=== PATIENT | female | born 1965 | race Two or more races ===

== ENCOUNTER 2024-03-10 19:00 | Inpatient (IN) | payer MEDICAID, OTHER ==
[~2024-03-10] VITALS: Ht 167.6 cm; Wt 101.6 kg
[2024-03-10] MEDS ORDERED: VANCOMYCIN 1 GM /D5W 250 ML PB IV ONE (19:27)
[2024-03-10] MEDS ORDERED: CEFEPIME 1 GM VIAL ONE (19:27)
[2024-03-10] MEDS ORDERED: CLINDAMYCIN 900 MG/6 ML VIAL ONE (19:27)
[2024-03-10] MEDS ORDERED: ALBUMIN 25% 50 ML IV ONE ×2 (19:27→19:38)
[2024-03-10] MEDS: IV NS 0.9% 1,000 ML BAG IV ONE (19:27)
[2024-03-10 19:29] LABS: BASOPHILS # (AUTO) 0.1 K/uL (0.0-0.2); EOSINOPHILS # (AUTO) 0.2 K/uL (0.0-0.7); MONOCYTES # (AUTO) 0.1 K/uL (0.1-1.30); NEUTROPHILS # (AUTO) 14.4 K/uL (1.8-8.9)
[2024-03-10] MEDS: ALBUMIN 25% 12.5 GM/50 ML BOTTLE IV ONE (19:35)
[2024-03-10] MEDS: CEFEPIME 1 GM in IV D5W 50 ML IV ONE (19:40)
[2024-03-10 19:41] LABS: BASOPHILS % (AUTO) 0.4 % (0.0-2.0); EOSINOPHILS % (AUTO) 1.1 % (0.0-6.0); HEMATOCRIT 38 % (33-45); HEMOGLOBIN 12.3 g/dL (11.5-14.8); LYMPHOCYTES # (AUTO) 0.3 K/uL (0.8-4.8); LYMPHOCYTES % (AUTO) 1.8 % (20.0-44.0); MEAN CORPUSCULAR HEMOGLOBIN 29 PG (26.0-33.0); MEAN CORPUSCULAR HGB CONC 32 g/dl (31.0-36.0); MEAN CORPUSCULAR VOLUME 88 fL (82-100); MONOCYTES % (AUTO) 0.9 % (2.0-12.0); NEUTROPHILS % (AUTO) 95.8 % (43.0-81.0); PLATELET COUNT (AUTO) 89 K/uL (150-450); RED BLOOD CELL COUNT(AUTO) 4.31 MIL/uL (4.0-5.2); RED CELL DISTRIBUTION WIDTH 22.4 % (11.5-15.0)
[2024-03-10 19:53] LABS: INR 1.36 (0.91-1.10); PARTIAL THROMBOPLASTIN TIME 34.9 SEC (24.3-34.3); PROTHROMBIN TIME 14.1 SECS (9.2-11.1)
[2024-03-10 20:04] LABS: ANISOCYTOSIS 1+; LYMPHOCYTES % (MANUAL) 2 % (16-48); MONOCYTES % (MANUAL) 1 % (0-11.0); NEUTROPHILS % (MANUAL) 97 (42-76); PLATELET ESTIMATE DECREASED
[2024-03-10 20:14] LABS: CALCIUM, SERUM 7.6 mg/dL (8.5-10.1); CARBON DIOXIDE 28 mmol/L (21-32); CHLORIDE 93 mmol/L (98-107); CREATININE 3.1 mg/dL (0.6-1.3); POTASSIUM 4.1 mmol/L (3.5-5.1); SODIUM SERUM 135 mmol/L (136-145); UREA NITROGEN, BLOOD 66 mg/dL (7-18)
[2024-03-10] MEDS: CLINDAMYCIN 600 MG in IV D5W 100 ML IV ONE (20:15)
[2024-03-10 20:17] LABS: GLUCOSE 47 mg/dL (74-106)
[2024-03-10 20:19] LABS: ALANINE AMINOTRANSFERASE 84 U/L (12-78); ALBUMIN 1.8 g/dL (3.4-5.0); ALKALINE PHOSPHATASE 100 U/L (46-116); ASPARTATE AMINOTRANSFERASE 95 U/L (15-37); BILIRUBIN,DIRECT 2.4 mg/dL (0.0-0.2); BILIRUBIN,TOTAL 3.1 mg/dL (0.2-1.0)
[2024-03-10 20:25] LABS: LACTIC ACID 4.7 mmol/L (0.4-2.0)
[2024-03-10] MEDS: IV LR 1000 ML 1,000 ML BAG IV ONE (21:00)
[2024-03-10] MEDS ORDERED: NOREPINEPHRINE 8MG/250ML RTU 250 ML IV ONE (21:28)
[2024-03-10] MEDS ORDERED: DEXTROSE 50%-WATER 50 ML DISP.SYRIN ONE (21:28)
[2024-03-10] MEDS: VANCOMYCIN 1 GM in IV D5W 250 ML IV ONE (21:30)
[2024-03-10] MEDS: DEXTROSE 50%-WATER 50 ML DISP.SYRIN IVP ONE (21:35)
[2024-03-10] MEDS: NOREPINEPHRINE 8 MG in IV NS 0.9% 250 ML IV ONE (21:45)
[2024-03-10] MEDS ORDERED: IV D5/ 0.9% NACL 1,000 ML IV PRN (22:30)
[2024-03-10] MEDS ORDERED: Z GUARD REMEDY 4 OZ OINT TP PRN (22:30)
[2024-03-10] MEDS ORDERED: MAG HYDROX/AL HYDROX/SIMETH 30 ML UDC PO PRN (22:30)
[2024-03-10] MEDS ORDERED: MAGNESIUM HYDROXIDE 30 ML UDC PO PRN (22:30)
[2024-03-11] VITALS (62 sets, daily range): BP systolic 75–140; BP diastolic 28–94; TEMP 97.8–98.5; O2SAT 84–98
[2024-03-11] MEDS: NOREPINEPHRINE 8 MG in IV D5W 242 ML IV PRN ×2 (04:00→12:55)
[2024-03-11] MEDS ORDERED: CLINDAMYCIN IV RTU IN D5W 900 MG/50 ML PIGGYBACK IV SCH (04:00)
[2024-03-11] MEDS: NOREPINEPHRINE 8MG/250ML RTU 250 ML IV ONE (06:19)
[2024-03-11] MEDS ORDERED: PANTOPRAZOLE 40 MG VIAL ONE (06:23)
[2024-03-11] MEDS: PANTOPRAZOLE 40 MG VIAL IV SCH (06:40)
[2024-03-11] MEDS ORDERED: FURO-145 PO (07:47)
[2024-03-11] MEDS ORDERED: CHOL200026 PO (07:47)
[2024-03-11] MEDS ORDERED: METH10TA2 PO (07:47)
[2024-03-11] MEDS ORDERED: LOSA1TAB36 PO (07:47)
[2024-03-11 07:54] LABS: CALCIUM, SERUM 7.4 mg/dL (8.5-10.1); CREATININE 3.2 mg/dL (0.6-1.3); MAGNESIUM 1.5 mg/dL (1.8-2.4); PHOSPHORUS 5.5 mg/dL (2.5-4.9); POTASSIUM 4.5 mmol/L (3.5-5.1)
[2024-03-11 08:44] LABS: BASOPHILS # (AUTO) 0.1 K/uL (0.0-0.2); BASOPHILS % (AUTO) 0.5 % (0.0-2.0); EOSINOPHILS # (AUTO) 0.2 K/uL (0.0-0.7); EOSINOPHILS % (AUTO) 0.8 % (0.0-6.0); HEMATOCRIT 40 % (33-45); HEMOGLOBIN 12.3 g/dL (11.5-14.8); LYMPHOCYTES # (AUTO) 0.4 K/uL (0.8-4.8); LYMPHOCYTES % (AUTO) 1.6 % (20.0-44.0); MEAN CORPUSCULAR HEMOGLOBIN 28 PG (26.0-33.0); MEAN CORPUSCULAR HGB CONC 31 g/dl (31.0-36.0); MEAN CORPUSCULAR VOLUME 89 fL (82-100); MONOCYTES # (AUTO) 0.3 K/uL (0.1-1.30); MONOCYTES % (AUTO) 1.3 % (2.0-12.0); NEUTROPHILS # (AUTO) 20.8 K/uL (1.8-8.9); NEUTROPHILS % (AUTO) 95.8 % (43.0-81.0); PLATELET COUNT (AUTO) 70 K/uL (150-450); RED BLOOD CELL COUNT(AUTO) 4.45 MIL/uL (4.0-5.2); RED CELL DISTRIBUTION WIDTH 21.5 % (11.5-15.0); WHITE BLOOD COUNT (AUTO) 21.7 K/uL (4.3-11.0)
[2024-03-11] MEDS ORDERED: HEPARIN SODIUM, PORCINE 5000 UNITS/1 ML VIAL SQ SCH (09:00)
[2024-03-11] MEDS: BUMETANIDE INJ 8 MG in IV NS 0.9% 48 ML IV ONE (09:47)
[2024-03-11] MEDS ORDERED: NOREPINEPHRINE 32 MG in IV NS 0.9% 218 ML IV PRN ×2 (10:30→19:00)
[2024-03-11] MEDS: Magnesium 1GM/D5W 100ML PREMIX 100 ML IV SCH (10:57)
[2024-03-11] MEDS ORDERED: NOREPINEPHRINE 8 MG in IV D5W 242 ML IV PRN (11:00)
[2024-03-11 11:21] LABS: ANISOCYTOSIS 1+; BASOPHILS % (MANUAL) 0 % (0.0-2.0); EOSINOPHILS % (MANUAL) 0 % (0-4); LYMPHOCYTES % (MANUAL) 5 % (16-48); MONOCYTES % (MANUAL) 4 % (0-11.0); NEUTROPHILS % (MANUAL) 91 (42-76); PLATELET ESTIMATE DECREASED
[2024-03-11] MEDS ORDERED: METHADONE HCL 10 MG TABLET PO SCH (12:30)
[2024-03-11] MEDS ORDERED: CLINDAMYCIN 900 MG in IV D5W 50 ML IV SCH (13:00)
[2024-03-11] MEDS: CHOLECALCIFEROL 1,000 UNIT TABLET (VIT D3) PO SCH (13:20)
[2024-03-11] MEDS ORDERED: DEXTROSE 50%-WATER 50 ML DISP.SYRIN IV PRN (15:00)
[2024-03-11] MEDS: BLOOD SUGAR DIAGNOSTIC 1 EACH STRIP IN SCH (15:09)
[2024-03-11] MEDS: CEFEPIME 1 GM in IV D5W 50 ML IV SCH (17:05)
[2024-03-11 18:44] LABS: APPEARANCE,URINE SLIGHTLY CLOUDY (CLEAR); BILIRUBIN,URINE 1+ (NEGATIVE); BLOOD, URINE 2+ Ery/uL (NEGATIVE); COLOR,URINE YELLOW (YELLOW); KETONES,URINE NEGATIVE (NEGATIVE); LEUKOCYTE ESTERASE ,URINE NEGATIVE (NEGATIVE); NITRITE, URINE NEGATIVE (NEGATIVE); PROTEIN,URINE 3+ mg/dl (NEGATIVE); UGLUCOSE NEGATIVE (NEGATIVE)
[2024-03-11 18:59] LABS: ADD URINE CULTURE YES; BACTERIA,URINE Many /HPF (None Seen); SQUAMOUS EPITHELIAL CELL,UR Moderate /HPF (None Seen); WBC,URINE 0-2 /HPF (0-3)
[2024-03-11 19:01] LABS: URINE TOTAL PROTEIN 563.8 mg/dL (0-11.9)
[2024-03-11 19:19] LABS: EOSINOPHIL,URINE None Seen
[2024-03-12] VITALS (89 sets, daily range): BP systolic 72–165; BP diastolic 37–137; TEMP 97.2–98; O2SAT 82–99
[2024-03-12 04:37] LABS: BASOPHILS % (AUTO) 0.2 % (0.0-2.0); HEMATOCRIT 37 % (33-45); HEMOGLOBIN 11.7 g/dL (11.5-14.8); LYMPHOCYTES # (AUTO) 0.4 K/uL (0.8-4.8); LYMPHOCYTES % (AUTO) 1.9 % (20.0-44.0); MEAN CORPUSCULAR HEMOGLOBIN 28 PG (26.0-33.0); MEAN CORPUSCULAR HGB CONC 32 g/dl (31.0-36.0); MEAN CORPUSCULAR VOLUME 89 fL (82-100); MONOCYTES # (AUTO) 0.3 K/uL (0.1-1.30); MONOCYTES % (AUTO) 1.6 % (2.0-12.0); NEUTROPHILS # (AUTO) 18.2 K/uL (1.8-8.9); NEUTROPHILS % (AUTO) 96.3 % (43.0-81.0); PLATELET COUNT (AUTO) 57 K/uL (150-450); RED BLOOD CELL COUNT(AUTO) 4.14 MIL/uL (4.0-5.2); RED CELL DISTRIBUTION WIDTH 21.7 % (11.5-15.0); WHITE BLOOD COUNT (AUTO) 18.9 K/uL (4.3-11.0)
[2024-03-12 05:01] LABS: ALBUMIN 1.8 g/dL (3.4-5.0); BILIRUBIN,TOTAL 2.6 mg/dL (0.2-1.0); CREATININE 3.8 mg/dL (0.6-1.3); MAGNESIUM 1.8 mg/dL (1.8-2.4); PHOSPHORUS 6.2 mg/dL (2.5-4.9); POTASSIUM 3.9 mmol/L (3.5-5.1)
[2024-03-12 05:44] LABS: BAND % (MANUAL) 2 % (0.0-5.0); LYMPHOCYTES % (MANUAL) 1 % (16-48); MONOCYTES % (MANUAL) 1 % (0-11.0); NEUTROPHILS % (MANUAL) 96 (42-76)
[2024-03-12 05:45] LABS: ANISOCYTOSIS 1+; PLATELET ESTIMATE DECREASED
[2024-03-12] MEDS: VANCOMYCIN 750 MG in IV D5W 250 ML IV SCH (08:13)
[2024-03-12] MEDS: PANTOPRAZOLE 40 MG TABLET.DR PO SCH (08:17)
[2024-03-12] MEDS: FLUOCINONIDE 0.05% CREAM 60 GM TUBE TP SCH (08:18)
[2024-03-12] MEDS: DAKINS QUARTER STRENGTH (0.125%) 480 ML BOTTLE TOP SCH (08:18)
[2024-03-12] MEDS: SILVER SULFADIAZINE 50 GM JAR TP SCH (08:19)
[2024-03-12] MEDS ORDERED: VANCOMYCIN 1 GM in IV D5W 250ml IV SCH (09:00)
[2024-03-12] MEDS ORDERED: PHENYLEPHRINE 50 MG in IV NS 0.9% 245 ML IV PRN (11:00)
[2024-03-12] MEDS: PHENYLEPHRINE 100 MG in IV NS 0.9% 240 ML IV PRN (11:13)
[2024-03-12] MEDS ORDERED: LORAZEPAM INJ 2 MG/ML VIAL IV PRN (17:00)
[2024-03-12] MEDS: LORAZEPAM 1 MG TABLET PO PRN (17:20)
[2024-03-13] VITALS (100 sets, daily range): BP systolic 68–201; BP diastolic 37–152; TEMP 97–97.7; O2SAT 90–100
[2024-03-13] MEDS: HYDROCODONE/APAP 5/325MG TABLET PO PRN (02:51)
[2024-03-13 05:38] LABS: BASOPHILS # (AUTO) 0.1 K/uL (0.0-0.2); BASOPHILS % (AUTO) 0.5 % (0.0-2.0); EOSINOPHILS # (AUTO) 0.1 K/uL (0.0-0.7); EOSINOPHILS % (AUTO) 0.5 % (0.0-6.0); HEMATOCRIT 38 % (33-45); HEMOGLOBIN 11.7 g/dL (11.5-14.8); LYMPHOCYTES # (AUTO) 0.3 K/uL (0.8-4.8); LYMPHOCYTES % (AUTO) 2.3 % (20.0-44.0); MEAN CORPUSCULAR HEMOGLOBIN 28 PG (26.0-33.0); MEAN CORPUSCULAR HGB CONC 31 g/dl (31.0-36.0); MEAN CORPUSCULAR VOLUME 89 fL (82-100); MONOCYTES # (AUTO) 0.4 K/uL (0.1-1.30); MONOCYTES % (AUTO) 2.6 % (2.0-12.0); NEUTROPHILS # (AUTO) 13.1 K/uL (1.8-8.9); NEUTROPHILS % (AUTO) 94.1 % (43.0-81.0); RED BLOOD CELL COUNT(AUTO) 4.22 MIL/uL (4.0-5.2); RED CELL DISTRIBUTION WIDTH 21.4 % (11.5-15.0); WHITE BLOOD COUNT (AUTO) 13.9 K/uL (4.3-11.0)
[2024-03-13 05:42] LABS: PLATELET COUNT (AUTO) 44 K/uL (150-450)
[2024-03-13 05:47] LABS: CREATININE 4.2 mg/dL (0.6-1.3); MAGNESIUM 1.9 mg/dL (1.8-2.4); PHOSPHORUS 6.7 mg/dL (2.5-4.9); POTASSIUM 4.7 mmol/L (3.5-5.1)
[2024-03-13 11:35] LABS: BASOPHILS % (MANUAL) 0 % (0.0-2.0); EOSINOPHILS % (MANUAL) 0 % (0-4); LYMPHOCYTES % (MANUAL) 4 % (16-48); MONOCYTES % (MANUAL) 3 % (0-11.0); NEUTROPHILS % (MANUAL) 93 (42-76)
[2024-03-13 11:36] LABS: ANISOCYTOSIS 1+; PLATELET ESTIMATE DECREASED
[2024-03-13 13:05] LABS: ABG BASE EXCESS -1.5 mmol/L; ABG OXYGEN SATURATION 99.1 % (92.0-98.5); ABG PCO2 52.8 mmHg (35.0-45.0); ABG PH 7.302 (7.350-7.450); ABG PO2 169.8 mmHg (75.0-100.0); ABG TOTAL HEMOGLOBIN 13.1 G/dL (12.0-16.0); AaDO2 127.3 mmHg; MetHb 0.3 % (0.0-1.5); O2Hb 97.8 % (94.0-97.0); SITE, ABG Right Radial
[2024-03-13] MEDS: ALBUMIN 25% 25 GM in PREMIX 1 EA IV PRN (17:37)
[2024-03-13] MEDS: VANCOMYCIN POST DIALYSIS 500MG IV PRN (19:06)
[2024-03-13] MEDS: IV NS 0.9% 250 ML IV PRN (19:19)
[2024-03-14] VITALS (86 sets, daily range): BP systolic 86–245; BP diastolic 47–217; TEMP 97.7–98.1; O2SAT 82–100
[2024-03-14 01:07] LABS: HEPATITIS B SURFACE AB Reactive (.)
[2024-03-14 01:07] LABS: PTH, INTACT 256 pg/mL (15-65)
[2024-03-14 07:00] LABS: BASOPHILS % (AUTO) 0.1 % (0.0-2.0); EOSINOPHILS # (AUTO) 0.1 K/uL (0.0-0.7); EOSINOPHILS % (AUTO) 0.6 % (0.0-6.0); HEMATOCRIT 38 % (33-45); HEMOGLOBIN 11.7 g/dL (11.5-14.8); LYMPHOCYTES # (AUTO) 0.2 K/uL (0.8-4.8); LYMPHOCYTES % (AUTO) 2.3 % (20.0-44.0); MEAN CORPUSCULAR HEMOGLOBIN 28 PG (26.0-33.0); MEAN CORPUSCULAR HGB CONC 31 g/dl (31.0-36.0); MEAN CORPUSCULAR VOLUME 92 fL (82-100); MONOCYTES # (AUTO) 0.4 K/uL (0.1-1.30); MONOCYTES % (AUTO) 4.3 % (2.0-12.0); NEUTROPHILS # (AUTO) 7.7 K/uL (1.8-8.9); NEUTROPHILS % (AUTO) 92.7 % (43.0-81.0); PLATELET COUNT (AUTO) 59 K/uL (150-450); RED BLOOD CELL COUNT(AUTO) 4.14 MIL/uL (4.0-5.2); RED CELL DISTRIBUTION WIDTH 22.1 % (11.5-15.0); WHITE BLOOD COUNT (AUTO) 8.3 K/uL (4.3-11.0)
[2024-03-14 07:03] LABS: CALCIUM, SERUM 8.2 mg/dL (8.5-10.1); CREATININE 3.8 mg/dL (0.6-1.3); POTASSIUM 5.7 mmol/L (3.5-5.1)
[2024-03-14 07:19] LABS: MAGNESIUM 2.1 mg/dL (1.8-2.4); PHOSPHORUS 7.2 mg/dL (2.5-4.9)
[2024-03-14 08:09] LABS: COMPLEMENT C3, SERUM 111 mg/dL (82-167); COMPLEMENT C4, SERUM 20 mg/dL (12-38)
[2024-03-14 09:59] LABS: BAND % (MANUAL) 2 % (0.0-5.0); BASOPHILS % (MANUAL) 0 % (0.0-2.0); EOSINOPHILS % (MANUAL) 0 % (0-4); LYMPHOCYTES % (MANUAL) 3 % (16-48); MONOCYTES % (MANUAL) 6 % (0-11.0); NEUTROPHILS % (MANUAL) 89 (42-76)
[2024-03-14 10:00] LABS: ANISOCYTOSIS 1+; HYPOCHROMASIA 1+; OVALOCYTES 1+; PLATELET ESTIMATE DECREASED
[2024-03-14 11:07] LABS: *ANA ANTI-CENTROMERE B AB <0.2 AI (0.0-0.9); *ANA ANTI-DNA(DS) AB, QN <1 IU/mL (0-9); *ANA ANTI-JO-1 <0.2 AI (0.0-0.9); *ANA ANTICHROMATIN ANTIBODY <0.2 AI (0.0-0.9); *ANA RNP ANTIBODIES 1.8 AI (0.0-0.9); *ANA SJOGREN'S ANTI-SS-A <0.2 AI (0.0-0.9); *ANA SJOGREN'S ANTI-SS-B <0.2 AI (0.0-0.9); *ANAANTI-SCLERODERMA-70 AB <0.2 AI (0.0-0.9); *ANASMITH AB <0.2 AI (0.0-0.9)
[2024-03-14] MEDS: PANTOPRAZOLE 40 MG VIAL IV SCH (11:32)
[2024-03-14] MEDS ORDERED: CEFAZOLIN 1 GM in IV D5W 50 ML IV SCH (13:00)
[2024-03-14] MEDS: CEFAZOLIN 1 GM in IV D5W 50 ML IV SCH (14:35)
[2024-03-14] MEDS: IV D5W 1,000 ML IV PRN (16:41)
[2024-03-14] MEDS: ACETAMINOPHEN 325 MG TABLET PO PRN (21:38)
[2024-03-14] MEDS: hydrALAZINE HCL IV 20 MG VIAL IV PRN (22:03)
[2024-03-15] VITALS (26 sets, daily range): BP systolic 84–154; BP diastolic 50–132; TEMP 97.7–98.3; O2SAT 88–99
[2024-03-15 04:14] LABS: BASOPHILS % (AUTO) 0.1 % (0.0-2.0); EOSINOPHILS % (AUTO) 0.4 % (0.0-6.0); HEMATOCRIT 37 % (33-45); HEMOGLOBIN 11.5 g/dL (11.5-14.8); LYMPHOCYTES # (AUTO) 0.2 K/uL (0.8-4.8); LYMPHOCYTES % (AUTO) 3.5 % (20.0-44.0); MEAN CORPUSCULAR HEMOGLOBIN 28 PG (26.0-33.0); MEAN CORPUSCULAR HGB CONC 31 g/dl (31.0-36.0); MEAN CORPUSCULAR VOLUME 89 fL (82-100); MONOCYTES # (AUTO) 0.4 K/uL (0.1-1.30); MONOCYTES % (AUTO) 5.8 % (2.0-12.0); NEUTROPHILS # (AUTO) 6.1 K/uL (1.8-8.9); NEUTROPHILS % (AUTO) 90.2 % (43.0-81.0); PLATELET COUNT (AUTO) 55 K/uL (150-450); RED BLOOD CELL COUNT(AUTO) 4.15 MIL/uL (4.0-5.2); RED CELL DISTRIBUTION WIDTH 21.3 % (11.5-15.0); WHITE BLOOD COUNT (AUTO) 6.7 K/uL (4.3-11.0)
[2024-03-15 04:33] LABS: CALCIUM, SERUM 8.8 mg/dL (8.5-10.1); CREATININE 3.2 mg/dL (0.6-1.3); POTASSIUM 4.2 mmol/L (3.5-5.1)
[2024-03-15 05:22] LABS: ANISOCYTOSIS 1+; BASOPHILS % (MANUAL) 0 % (0.0-2.0); EOSINOPHILS % (MANUAL) 0 % (0-4); LYMPHOCYTES % (MANUAL) 3 % (16-48); MONOCYTES % (MANUAL) 6 % (0-11.0); NEUTROPHILS % (MANUAL) 91 (42-76); OVALOCYTES 1+; PLATELET ESTIMATE DECREASED
[2024-03-15 08:40] LABS: ABG BASE EXCESS -1.5 mmol/L; ABG OXYGEN SATURATION 97.5 % (92.0-98.5); ABG PCO2 54.1 mmHg (35.0-45.0); ABG PH 7.295 (7.350-7.450); ABG PO2 105.6 mmHg (75.0-100.0); ABG TOTAL HEMOGLOBIN 12.8 G/dL (12.0-16.0); AaDO2 146.5 mmHg; COHb 1.6 % (0.5-1.5); MetHb 0.3 % (0.0-1.5); O2Hb 95.6 % (94.0-97.0); SITE, ABG Right Radial; VENT MODE, BG Nasal Cannula
[2024-03-15 11:13] LABS: *SPE A/G RATIO 0.6 (0.7-1.7); *SPE ALBUMIN 2.2 g/dL (2.9-4.4); *SPE ALPHA-1-GLOBULIN 0.5 g/dL (0.0-0.4); *SPE ALPHA-2-GLOBULIN 0.7 g/dL (0.4-1.0); *SPE BETA GLOBULIN 0.9 g/dL (0.7-1.3); *SPE GLOBULIN, TOTAL 3.5 g/dL (2.2-3.9); *SPE M-SPIKE Not Observed g/dL (Not Observed); *SPE PROTEIN TOTAL 5.7 g/dL (6.0-8.5); *SPEGAMMA GLOBULIN 1.4 g/dL (0.4-1.8)
[2024-03-15] MEDS ORDERED: DEXTROSE 50%-WATER 50 ML DISP.SYRIN IV PRN (11:30)
[2024-03-15] MEDS: INSULIN REGULAR, HUMAN 100 UNIT/ML 3 ML VIAL SQ PRN (11:49)
[2024-03-16] VITALS (30 sets, daily range): BP systolic 97–160; BP diastolic 69–117; TEMP 97.6–98.3; O2SAT 82–99
[2024-03-16 04:54] LABS: BASOPHILS % (AUTO) 0.2 % (0.0-2.0); EOSINOPHILS % (AUTO) 0.6 % (0.0-6.0); HEMATOCRIT 37 % (33-45); HEMOGLOBIN 11.6 g/dL (11.5-14.8); LYMPHOCYTES # (AUTO) 0.2 K/uL (0.8-4.8); LYMPHOCYTES % (AUTO) 3.4 % (20.0-44.0); MEAN CORPUSCULAR HEMOGLOBIN 28 PG (26.0-33.0); MEAN CORPUSCULAR HGB CONC 32 g/dl (31.0-36.0); MEAN CORPUSCULAR VOLUME 88 fL (82-100); MONOCYTES # (AUTO) 0.4 K/uL (0.1-1.30); MONOCYTES % (AUTO) 5.4 % (2.0-12.0); NEUTROPHILS # (AUTO) 6.1 K/uL (1.8-8.9); NEUTROPHILS % (AUTO) 90.4 % (43.0-81.0); PLATELET COUNT (AUTO) 68 K/uL (150-450); RED CELL DISTRIBUTION WIDTH 21.2 % (11.5-15.0); WHITE BLOOD COUNT (AUTO) 6.7 K/uL (4.3-11.0)
[2024-03-16 05:08] LABS: CALCIUM, SERUM 9.2 mg/dL (8.5-10.1); CREATININE 2.8 mg/dL (0.6-1.3); POTASSIUM 3.7 mmol/L (3.5-5.1)
[2024-03-16 05:43] LABS: ANISOCYTOSIS 1+; BASOPHILS % (MANUAL) 0 % (0.0-2.0); EOSINOPHILS % (MANUAL) 0 % (0-4); LYMPHOCYTES % (MANUAL) 4 % (16-48); MONOCYTES % (MANUAL) 4 % (0-11.0); NEUTROPHILS % (MANUAL) 92 (42-76); PLATELET ESTIMATE DECREASED; STOMATOCYTES 1+
[2024-03-16] MEDS ORDERED: MORPHINE SULFATE INJ 4 MG/ML DISP.SYRIN IV PRN (09:30)
[2024-03-16] MEDS: MORPHINE SULFATE INJ 4 MG/ML DISP.SYRIN IV STA (09:51)
[2024-03-16] MEDS: SENNOSIDES 8.6 MG TABLET PO SCH (17:37)
[2024-03-16] MEDS: BISACODYL SUPP (10 MG) 10 MG/SUPP.RECT SUPP.RECT RC PRN (17:42)
[2024-03-16] MEDS: *INSULIN REGULAR(HUMULIN R)HUM 100 UNIT/ML VIAL SQ PRN (21:18)
[2024-03-16] MEDS: AMIODARONE 150 MG/3 ML VIAL IV ONE (22:06)
[2024-03-16] MEDS: AMIODARONE 150 MG in IV D5W 100 ML IV ONE (22:13)
[2024-03-16] MEDS: AMIODARONE 450 MG in IV D5W 241 ML IV PRN (22:19)
[2024-03-17] VITALS (27 sets, daily range): BP systolic 82–145; BP diastolic 54–100; TEMP 97.6–98.7; O2SAT 86–100
[2024-03-17 04:51] LABS: BASOPHILS % (AUTO) 0.2 % (0.0-2.0); EOSINOPHILS % (AUTO) 0.3 % (0.0-6.0); HEMATOCRIT 36 % (33-45); HEMOGLOBIN 11.5 g/dL (11.5-14.8); LYMPHOCYTES # (AUTO) 0.4 K/uL (0.8-4.8); LYMPHOCYTES % (AUTO) 4.7 % (20.0-44.0); MEAN CORPUSCULAR HEMOGLOBIN 28 PG (26.0-33.0); MEAN CORPUSCULAR HGB CONC 32 g/dl (31.0-36.0); MEAN CORPUSCULAR VOLUME 88 fL (82-100); MONOCYTES # (AUTO) 0.4 K/uL (0.1-1.30); MONOCYTES % (AUTO) 5.2 % (2.0-12.0); NEUTROPHILS # (AUTO) 7.7 K/uL (1.8-8.9); NEUTROPHILS % (AUTO) 89.6 % (43.0-81.0); PLATELET COUNT (AUTO) 84 K/uL (150-450); RED BLOOD CELL COUNT(AUTO) 4.15 MIL/uL (4.0-5.2); RED CELL DISTRIBUTION WIDTH 20.7 % (11.5-15.0); WHITE BLOOD COUNT (AUTO) 8.5 K/uL (4.3-11.0)
[2024-03-17 05:05] LABS: CALCIUM, SERUM 8.3 mg/dL (8.5-10.1); CREATININE 2.4 mg/dL (0.6-1.3); MAGNESIUM 2.1 mg/dL (1.8-2.4); PHOSPHORUS 4.3 mg/dL (2.5-4.9)
[2024-03-17 06:01] LABS: BASOPHILS % (MANUAL) 0 % (0.0-2.0); EOSINOPHILS % (MANUAL) 0 % (0-4); LYMPHOCYTES % (MANUAL) 6 % (16-48); MONOCYTES % (MANUAL) 7 % (0-11.0); NEUTROPHILS % (MANUAL) 87 (42-76)
[2024-03-17 06:02] LABS: ANISOCYTOSIS 1+; HYPOCHROMASIA 1+; OVALOCYTES 1+; PLATELET ESTIMATE DECREASED; TARGET CELLS 1+
[2024-03-17 08:29] LABS: ABG BASE EXCESS -2.5 mmol/L; ABG PCO2 49.2 mmHg (35.0-45.0); ABG PH 7.308 (7.350-7.450); ABG PO2 92.7 mmHg (75.0-100.0); ABG TOTAL HEMOGLOBIN 12.9 G/dL (12.0-16.0); AaDO2 77.9 mmHg; COHb 2.2 % (0.5-1.5); MetHb 0.2 % (0.0-1.5); O2Hb 93.7 % (94.0-97.0); SITE, ABG Right Radial; VENT MODE, BG 3L NC
[2024-03-17] MEDS ORDERED: PANTOPRAZOLE 40 MG TABLET.DR PO SCH (09:00)
[2024-03-17] MEDS ORDERED: PANTOPRAZOLE 40 MG/PACK PACK GT SCH (09:00)
[2024-03-17] MEDS: PANTOPRAZOLE 40 MG/PACK PACK PO SCH (09:24)
[2024-03-17] MEDS: NA PHOS,M-B/NA PHOS,DI-BA 1 EA ENEMA RC PRN (12:25)
[2024-03-17] MEDS ORDERED: NA PHOS,M-B/NA PHOS,DI-BA 1 EA ENEMA RC PRN (12:30)
[2024-03-17 13:40] LABS: HIV-1 p24 ANTIGEN NON REACTIVE (NONREACTIVE); HIV-1/2 ANTIBODY NON REACTIVE (NONREACTIVE)
[2024-03-18] VITALS (30 sets, daily range): BP systolic 91–136; BP diastolic 62–84; TEMP 97.1–98; O2SAT 95–100
[2024-03-18 04:24] LABS: BASOPHILS % (AUTO) 0.1 % (0.0-2.0); EOSINOPHILS % (AUTO) 0.5 % (0.0-6.0); HEMATOCRIT 35 % (33-45); HEMOGLOBIN 11.3 g/dL (11.5-14.8); LYMPHOCYTES # (AUTO) 0.3 K/uL (0.8-4.8); LYMPHOCYTES % (AUTO) 3.8 % (20.0-44.0); MEAN CORPUSCULAR HEMOGLOBIN 28 PG (26.0-33.0); MEAN CORPUSCULAR HGB CONC 32 g/dl (31.0-36.0); MEAN CORPUSCULAR VOLUME 89 fL (82-100); MONOCYTES # (AUTO) 0.4 K/uL (0.1-1.30); MONOCYTES % (AUTO) 4.7 % (2.0-12.0); NEUTROPHILS # (AUTO) 8.3 K/uL (1.8-8.9); NEUTROPHILS % (AUTO) 90.9 % (43.0-81.0); PLATELET COUNT (AUTO) 83 K/uL (150-450); RED CELL DISTRIBUTION WIDTH 20.5 % (11.5-15.0); WHITE BLOOD COUNT (AUTO) 9.2 K/uL (4.3-11.0)
[2024-03-18 04:40] LABS: MAGNESIUM 1.7 mg/dL (1.8-2.4); PHOSPHORUS 4.4 mg/dL (2.5-4.9); POTASSIUM 3.4 mmol/L (3.5-5.1)
[2024-03-18 05:58] LABS: PLATELET ESTIMATE DECREASED
[2024-03-18 05:59] LABS: ANISOCYTOSIS 1+; TARGET CELLS 1+
[2024-03-18] MEDS: AMIODARONE HCL 200 MG TABLET PO SCH (10:20)
[2024-03-18] MEDS: POTASSIUM CHLORIDE 10 MEQ TABLET.SA PO ONE (10:21)
[2024-03-18] MEDS: MAGNESIUM OXIDE 400 MG TABLET PO ONE (10:21)
[2024-03-19] VITALS: BP 128/73; TEMP 98; O2SAT 98
[2024-03-19 04:00] VITALS: BP 133/87; TEMP 98.5; O2SAT 95
[2024-03-19 08:00] VITALS: BP 126/78; TEMP 97.6; O2SAT 93
[2024-03-19 08:03] LABS: BASOPHILS # (AUTO) 0.1 K/uL (0.0-0.2); BASOPHILS % (AUTO) 0.7 % (0.0-2.0); EOSINOPHILS % (AUTO) 0.4 % (0.0-6.0); HEMATOCRIT 36 % (33-45); HEMOGLOBIN 11.5 g/dL (11.5-14.8); LYMPHOCYTES # (AUTO) 0.3 K/uL (0.8-4.8); MEAN CORPUSCULAR HEMOGLOBIN 28 PG (26.0-33.0); MEAN CORPUSCULAR HGB CONC 32 g/dl (31.0-36.0); MEAN CORPUSCULAR VOLUME 88 fL (82-100); MONOCYTES # (AUTO) 0.6 K/uL (0.1-1.30); MONOCYTES % (AUTO) 5.5 % (2.0-12.0); NEUTROPHILS # (AUTO) 9.8 K/uL (1.8-8.9); NEUTROPHILS % (AUTO) 90.4 % (43.0-81.0); PLATELET COUNT (AUTO) 79 K/uL (150-450); RED BLOOD CELL COUNT(AUTO) 4.09 MIL/uL (4.0-5.2); RED CELL DISTRIBUTION WIDTH 20.7 % (11.5-15.0); WHITE BLOOD COUNT (AUTO) 10.8 K/uL (4.3-11.0)
[2024-03-19 08:15] LABS: CALCIUM, SERUM 7.9 mg/dL (8.5-10.1); CREATININE 1.7 mg/dL (0.6-1.3); MAGNESIUM 1.4 mg/dL (1.8-2.4); POTASSIUM 3.4 mmol/L (3.5-5.1)
[2024-03-19] MEDS: POTASSIUM CHLORIDE 10 MEQ TABLET.SA PO ONE (08:50)
[2024-03-19 09:31] LABS: LYMPHOCYTES % (MANUAL) 5 % (16-48); NEUTROPHILS % (MANUAL) 90 (42-76)
[2024-03-19 09:32] LABS: ANISOCYTOSIS 1+; MONOCYTES % (MANUAL) 5 % (0-11.0); PLATELET ESTIMATE DECREASED; STOMATOCYTES 1+; TARGET CELLS 1+
[2024-03-19] MEDS: MAGNESIUM OXIDE 400 MG TABLET PO ONE (09:39)
[2024-03-19 12:00] VITALS: BP 127/77; TEMP 97.5; O2SAT 93
[2024-03-19 16:00] VITALS: BP 123/79; TEMP 97.6; O2SAT 96
[2024-03-19] MEDS: BISACODYL SUPP (10 MG) 10 MG/SUPP.RECT SUPP.RECT RC PRN (20:25)
[2024-03-19] MEDS: HEPARIN SODIUM, PORCINE 5000 UNITS/1 ML VIAL SQ SCH (21:00)
[2024-03-19 21:21] VITALS: O2SAT 94
[2024-03-20] VITALS (7 sets, daily range): BP systolic 105–134; BP diastolic 65–84; TEMP 97.7–99; O2SAT 96–98
[2024-03-20] MEDS: ZOLPIDEM TARTRATE 10 MG TABLET PO PRN (01:26)
[2024-03-20 06:51] LABS: BASOPHILS % (AUTO) 0.1 % (0.0-2.0); EOSINOPHILS % (AUTO) 0.3 % (0.0-6.0); HEMATOCRIT 36 % (33-45); HEMOGLOBIN 11.4 g/dL (11.5-14.8); LYMPHOCYTES # (AUTO) 0.5 K/uL (0.8-4.8); LYMPHOCYTES % (AUTO) 4.7 % (20.0-44.0); MEAN CORPUSCULAR HEMOGLOBIN 28 PG (26.0-33.0); MEAN CORPUSCULAR HGB CONC 32 g/dl (31.0-36.0); MEAN CORPUSCULAR VOLUME 88 fL (82-100); MONOCYTES # (AUTO) 0.8 K/uL (0.1-1.30); MONOCYTES % (AUTO) 7.3 % (2.0-12.0); NEUTROPHILS # (AUTO) 9.7 K/uL (1.8-8.9); NEUTROPHILS % (AUTO) 87.6 % (43.0-81.0); PLATELET COUNT (AUTO) 99 K/uL (150-450); RED BLOOD CELL COUNT(AUTO) 4.11 MIL/uL (4.0-5.2); RED CELL DISTRIBUTION WIDTH 20.4 % (11.5-15.0); WHITE BLOOD COUNT (AUTO) 11.1 K/uL (4.3-11.0)
[2024-03-20 06:53] LABS: CALCIUM, SERUM 8.1 mg/dL (8.5-10.1); CREATININE 1.8 mg/dL (0.6-1.3); MAGNESIUM 1.5 mg/dL (1.8-2.4); PHOSPHORUS 3.6 mg/dL (2.5-4.9)
[2024-03-20] MEDS: MAGNESIUM OXIDE 400 MG TABLET PO ONE (11:03)
[2024-03-20] MEDS ORDERED: ANESTHESIA TRAY IN PYXIS 1 EA TRAY MC ONE (12:00)
[2024-03-21] VITALS (7 sets, daily range): BP systolic 97–133; BP diastolic 57–74; TEMP 97.7–98.2; O2SAT 96–98
[2024-03-21 06:36] LABS: BASOPHILS % (AUTO) 0.4 % (0.0-2.0); EOSINOPHILS % (AUTO) 0.1 % (0.0-6.0); HEMATOCRIT 31 % (33-45); HEMOGLOBIN 10.2 g/dL (11.5-14.8); LYMPHOCYTES # (AUTO) 0.4 K/uL (0.8-4.8); LYMPHOCYTES % (AUTO) 4.5 % (20.0-44.0); MEAN CORPUSCULAR HEMOGLOBIN 29 PG (26.0-33.0); MEAN CORPUSCULAR HGB CONC 33 g/dl (31.0-36.0); MEAN CORPUSCULAR VOLUME 89 fL (82-100); MONOCYTES # (AUTO) 0.8 K/uL (0.1-1.30); MONOCYTES % (AUTO) 8.2 % (2.0-12.0); NEUTROPHILS # (AUTO) 8.1 K/uL (1.8-8.9); NEUTROPHILS % (AUTO) 86.8 % (43.0-81.0); PLATELET COUNT (AUTO) 87 K/uL (150-450); RED BLOOD CELL COUNT(AUTO) 3.52 MIL/uL (4.0-5.2); WHITE BLOOD COUNT (AUTO) 9.4 K/uL (4.3-11.0)
[2024-03-21 07:12] LABS: CREATININE 1.3 mg/dL (0.6-1.3); MAGNESIUM 1.3 mg/dL (1.8-2.4); PHOSPHORUS 3.1 mg/dL (2.5-4.9); POTASSIUM 4.2 mmol/L (3.5-5.1)
[2024-03-21 08:52] LABS: ANISOCYTOSIS 1+; BAND % (MANUAL) 1 % (0.0-5.0); BASOPHILS % (MANUAL) 0 % (0.0-2.0); EOSINOPHILS % (MANUAL) 0 % (0-4); LYMPHOCYTES % (MANUAL) 6 % (16-48); MONOCYTES % (MANUAL) 8 % (0-11.0); NEUTROPHILS % (MANUAL) 85 (42-76); PLATELET ESTIMATE DECREASED
[2024-03-21] MEDS: Magnesium 1GM/D5W 100ML PREMIX 100 ML IV SCH (09:27)
[2024-03-21] MEDS ORDERED: MAGNESIUM OXIDE 400 MG TABLET PO ONE (09:30)
[2024-03-21] MEDS: CEFAZOLIN 1 GM in IV D5W 50 ML IV SCH (12:26)
[2024-03-21] MEDS ORDERED: SILV20CR13 TP (13:04)
[2024-03-21] MEDS ORDERED: FLUO30CR11 TP (13:04)
[2024-03-21] MEDS ORDERED: AMIO200T7 PO (13:04)
[2024-03-21] MEDS ORDERED: CEPH-570 PO (13:04)
[2024-03-21] MEDS ORDERED: HYDR-3980 PO (13:04)
[2024-03-21] MEDS ORDERED: SODI473S8 TOP (13:04)
[2024-03-21] MEDS ORDERED: PANT40SU2 PO (13:04)
[2024-03-21] MEDS: APIXABAN 5 MG TABLET PO SCH (16:27)
[2024-03-21] MEDS: ONDANSETRON HCL/PF 4 MG/2 ML VIAL IVP PRN (18:44)
[2024-03-22] VITALS: BP 110/69; TEMP 97.5; O2SAT 95
[2024-03-22 04:00] VITALS: BP 100/52; TEMP 97.2; O2SAT 96
[2024-03-22 07:28] LABS: BASOPHILS # (AUTO) 0.1 K/uL (0.0-0.2); BASOPHILS % (AUTO) 0.6 % (0.0-2.0); EOSINOPHILS % (AUTO) 0.5 % (0.0-6.0); HEMATOCRIT 34 % (33-45); HEMOGLOBIN 10.5 g/dL (11.5-14.8); LYMPHOCYTES # (AUTO) 0.4 K/uL (0.8-4.8); LYMPHOCYTES % (AUTO) 4.5 % (20.0-44.0); MEAN CORPUSCULAR HEMOGLOBIN 28 PG (26.0-33.0); MEAN CORPUSCULAR HGB CONC 31 g/dl (31.0-36.0); MEAN CORPUSCULAR VOLUME 90 fL (82-100); MONOCYTES # (AUTO) 0.8 K/uL (0.1-1.30); MONOCYTES % (AUTO) 9.4 % (2.0-12.0); NEUTROPHILS # (AUTO) 7.6 K/uL (1.8-8.9); PLATELET COUNT (AUTO) 103 K/uL (150-450); RED BLOOD CELL COUNT(AUTO) 3.74 MIL/uL (4.0-5.2); WHITE BLOOD COUNT (AUTO) 8.9 K/uL (4.3-11.0)
[2024-03-22 08:00] VITALS: BP 98/51; TEMP 98.2; O2SAT 95
[2024-03-22 08:34] LABS: MAGNESIUM 1.9 mg/dL (1.8-2.4); PHOSPHORUS 4.1 mg/dL (2.5-4.9); POTASSIUM 4.4 mmol/L (3.5-5.1)
[2024-03-22 08:43] LABS: CREATININE 1.5 mg/dL (0.6-1.3)
[2024-03-22 12:30] VITALS: BP 100/54; TEMP 98.1; O2SAT 95
[2024-03-22 16:00] VITALS: BP 91/52; TEMP 98.1; O2SAT 95
== END 2024-03-22 18:40 | DRG 720 ==
LOC: ER 19:02 → ICU 03-11 00:23 → UNDOADMIN 03-11 00:23 → TRANSITION 03-11 05:55 → ICU 03-11 07:41 → TELE1 03-18 14:39 → TELE-TD 03-18 16:52 → ICU 03-20 11:32 → TELE1 03-20 15:39 → MEDSG1 03-22 08:47
PROVIDERS: ADMIT Nurse Practitioner Acute Care; ATTEND Nurse Practitioner Acute Care
PROC: 02HV33Z Insertion of Infusion Device into Superior Vena Cava, Percutaneous Approach (ICD-10-PCS; principal; 2024-03-11)
PROC: B548ZZA Ultrasonography of Superior Vena Cava, Guidance (ICD-10-PCS; 2024-03-11)
PROC: 5A1D70Z Performance of Urinary Filtration, Intermittent, Less than 6 Hours Per Day (ICD-10-PCS; 2024-03-13)
PROC: 05HM33Z Insertion of Infusion Device into Right Internal Jugular Vein, Percutaneous Approach (ICD-10-PCS; 2024-03-13)
PROC: B543ZZA Ultrasonography of Right Jugular Veins, Guidance (ICD-10-PCS; 2024-03-13)
DX: A40.9 Streptococcal sepsis, unspecified (principal); N17.0 Acute kidney failure with tubular necrosis; J96.21 Acute and chronic respiratory failure with hypoxia; R65.21 Severe sepsis with septic shock; E44.0 Moderate protein-calorie malnutrition; G93.40 Encephalopathy, unspecified; J15.9 Unspecified bacterial pneumonia; E87.1 Hypo-osmolality and hyponatremia; D69.6 Thrombocytopenia, unspecified; I50.33 Acute on chronic diastolic (congestive) heart failure; N18.6 End stage renal disease; E87.20 Acidosis, unspecified; I21.A1 Myocardial infarction type 2; J96.22 Acute and chronic respiratory failure with hypercapnia; I13.2 Hypertensive heart and chronic kidney disease with heart failure and with stage 5 chronic kidney disease, or end stage renal disease; L03.116 Cellulitis of left lower limb; Z99.2 Dependence on renal dialysis; M89.8X9 Other specified disorders of bone, unspecified site; E83.42 Hypomagnesemia; E66.01 Morbid (severe) obesity due to excess calories; G47.33 Obstructive sleep apnea (adult) (pediatric); Z68.36 Body mass index [BMI] 36.0-36.9, adult; Z20.822 Contact with and (suspected) exposure to COVID-19; Z88.8 Allergy status to other drugs, medicaments and biological substances; E86.1 Hypovolemia; E86.0 Dehydration; E16.2 Hypoglycemia, unspecified; E88.09 Other disorders of plasma-protein metabolism, not elsewhere classified; E87.5 Hyperkalemia; S81.812A Laceration without foreign body, left lower leg, initial encounter; X58.XXXA Exposure to other specified factors, initial encounter; Y92.9 Unspecified place or not applicable; G89.4 Chronic pain syndrome; B19.20 Unspecified viral hepatitis C without hepatic coma; D64.9 Anemia, unspecified; I08.0 Rheumatic disorders of both mitral and aortic valves; I70.0 Atherosclerosis of aorta; I27.20 Pulmonary hypertension, unspecified; L97.229 Non-pressure chronic ulcer of left calf with unspecified severity; L97.529 Non-pressure chronic ulcer of other part of left foot with unspecified severity; N25.81 Secondary hyperparathyroidism of renal origin; Y92.009 Unspecified place in unspecified non-institutional (private) residence as the place of occurrence of the external cause; W19.XXXA Unspecified fall, initial encounter; Z53.20 Procedure and treatment not carried out because of patient's decision for unspecified reasons; Z68.35 Body mass index [BMI] 35.0-35.9, adult; Z79.891 Long term (current) use of opiate analgesic; Z87.891 Personal history of nicotine dependence; Z91.199 Patient's noncompliance with other medical treatment and regimen due to unspecified reason; Z79.899 Other long term (current) drug therapy; R60.1 Generalized edema; R74.01 Elevation of levels of liver transaminase levels; M35.9 Systemic involvement of connective tissue, unspecified; N28.89 Other specified disorders of kidney and ureter; R80.9 Proteinuria, unspecified
CPT/HCPCS: 36415; 36600; 71045-TC; 73590-TC; 73700-TC; 76770-TC; 80048-TC; 80053-TC; 80061-TC; 80076-TC; 80202-TC; 81001; 82533; 82550-TC; 82570-TC; 82595; 82803-TC; 82962-TC; 83605-TC; 83735-TC; 83970; 84100-TC; 84155; 84165; 84300-TC; 84484-TC; 85025-TC; 85652-TC; 85730-TC; 86140-TC; 86225; 86235; 86706; 86803; 87040-TC; 87081-TC; 87086-TC; 87186-TC; 87340; 87522; 87806; 90935-TC; 93307-TC; 93312-TC; 93970-TC; 94660; 94761-TC; 94762-TC; 94799-TC; 97110-TC; 97112-TC; 97530-TC; 97535-TC; A4216; A4223; A6253; A6403; C9113; G0378; J0282; J0360; J0690; J0692; J1644; J1815; J2405; J2704; J3370; J3371; J3475; J3490; J7030; J7050; J7060; J7070; J7120; P9047

== ENCOUNTER 2024-04-06 18:49 | Inpatient (IN) | payer MEDICAID ==
[~2024-04-06] VITALS: Ht 160 cm; Wt 86.2 kg
[~2024-04-06 18:49] MED LIST: AMIO200T7 PO; CEPH-570 PO; FLUO30CR11 TP; HYDR-3980 PO; PANT40SU2 PO; SILV20CR13 TP; SODI473S8 TOP
[2024-04-06] MEDS ORDERED: FUROSEMIDE 40 MG/4 ML VIAL ONE (19:11)
[2024-04-06] MEDS: FUROSEMIDE 40 MG/4 ML VIAL IV ONE (19:15)
[2024-04-06 19:25] VITALS: O2SAT 97
[2024-04-06 19:31] LABS: BASOPHILS % (AUTO) 0.6 % (0.0-2.0); EOSINOPHILS # (AUTO) 0.2 K/uL (0.0-0.7); EOSINOPHILS % (AUTO) 2.5 % (0.0-6.0); HEMATOCRIT 31 % (33-45); HEMOGLOBIN 9.7 g/dL (11.5-14.8); LYMPHOCYTES # (AUTO) 0.5 K/uL (0.8-4.8); LYMPHOCYTES % (AUTO) 7.4 % (20.0-44.0); MEAN CORPUSCULAR HEMOGLOBIN 30 PG (26.0-33.0); MEAN CORPUSCULAR HGB CONC 31 g/dl (31.0-36.0); MEAN CORPUSCULAR VOLUME 95 fL (82-100); MONOCYTES # (AUTO) 0.5 K/uL (0.1-1.30); MONOCYTES % (AUTO) 8.9 % (2.0-12.0); NEUTROPHILS % (AUTO) 80.6 % (43.0-81.0); PLATELET COUNT (AUTO) 103 K/uL (150-450); RED BLOOD CELL COUNT(AUTO) 3.28 MIL/uL (4.0-5.2); RED CELL DISTRIBUTION WIDTH 23.2 % (11.5-15.0); WHITE BLOOD COUNT (AUTO) 6.2 K/uL (4.3-11.0)
[2024-04-06] MEDS ORDERED: FURO40TA5 PO (19:34)
[2024-04-06] MEDS ORDERED: MAGN400O6 PO (19:34)
[2024-04-06] MEDS ORDERED: PREG25CA51 PO (19:34)
[2024-04-06] MEDS ORDERED: SENN8.6T19 PO (19:34)
[2024-04-06] MEDS ORDERED: PANT40TA2 PO (19:34)
[2024-04-06] MEDS ORDERED: ZINC220C6 PO (19:34)
[2024-04-06] MEDS ORDERED: BISA10SU11 RC (19:34)
[2024-04-06] MEDS ORDERED: LIDO700A30 TP (19:34)
[2024-04-06] MEDS ORDERED: POTA8TAB3 PO (19:34)
[2024-04-06] MEDS ORDERED: NA P133E RC (19:34)
[2024-04-06] MEDS ORDERED: ACET-73 PO (19:34)
[2024-04-06] MEDS ORDERED: ALBU2.5V11 IH (19:34)
[2024-04-06] MEDS ORDERED: FLUO15CR2 TP (19:34)
[2024-04-06] MEDS ORDERED: ACET325T53 PO (19:34)
[2024-04-06] MEDS ORDERED: DOCU100C36 PO (19:34)
[2024-04-06] MEDS ORDERED: AMIO200T5 PO (19:34)
[2024-04-06 19:37] LABS: CALCIUM, SERUM 8.6 mg/dL (8.5-10.1); CARBON DIOXIDE 34 mmol/L (21-32); CHLORIDE 101 mmol/L (98-107); CREATININE 1.3 mg/dL (0.6-1.3); GLUCOSE 146 mg/dL (74-106); POTASSIUM 4.9 mmol/L (3.5-5.1); SODIUM SERUM 138 mmol/L (136-145); UREA NITROGEN, BLOOD 39 mg/dL (7-18)
[2024-04-06 19:50] LABS: NT-PRO BNP 2943 pg/mL (0-125)
[2024-04-06] MEDS ORDERED: Z GUARD REMEDY 4 OZ OINT TP PRN (20:30)
[2024-04-06] MEDS ORDERED: BISACODYL SUPP (10 MG) 10 MG/SUPP.RECT SUPP.RECT RC PRN (20:30)
[2024-04-06] MEDS ORDERED: ACETAMINOPHEN 325 MG TABLET PO PRN (20:30)
[2024-04-06] MEDS ORDERED: NITROGLYCERIN 0.4 MG/TAB BOTTLE ONE (20:40)
[2024-04-06] MEDS: NITROGLYCERIN 0.4 MG/TAB BOTTLE SL ONE (20:43)
[2024-04-06 20:45] VITALS: O2SAT 95
[2024-04-06 21:59] LABS: INR 1.09 (0.91-1.10); PROTHROMBIN TIME 11.5 SECS (9.2-11.1)
[2024-04-06 22:40] VITALS: O2SAT 98
[2024-04-06 22:45] VITALS: BP 122/75; TEMP 97.2; O2SAT 97
[2024-04-06] MEDS: AMIODARONE HCL 200 MG TABLET PO SCH (22:58)
[2024-04-06] MEDS: ENOXAPARIN SODIUM 40 MG/0.4 ML DISP.SYRIN SQ SCH (22:59)
[2024-04-06 23:00] VITALS: BP 104/59; O2SAT 97
[2024-04-07] VITALS (38 sets, daily range): BP systolic 103–199; BP diastolic 57–184; TEMP 97.6–97.9; O2SAT 76–100
[2024-04-07] MEDS: ALBUTEROL FS 2.5 MG/3 ML VIAL.NEB NEB SCH (01:34)
[2024-04-07] MEDS: IPRATROPIUM NEB FS 0.5 MG/2.5 ML AMPUL.NEB NEB SCH (01:35)
[2024-04-07 05:16] LABS: BASOPHILS % (AUTO) 0.6 % (0.0-2.0); EOSINOPHILS # (AUTO) 0.2 K/uL (0.0-0.7); HEMATOCRIT 30 % (33-45); HEMOGLOBIN 9.3 g/dL (11.5-14.8); LYMPHOCYTES # (AUTO) 0.5 K/uL (0.8-4.8); LYMPHOCYTES % (AUTO) 8.7 % (20.0-44.0); MEAN CORPUSCULAR HEMOGLOBIN 30 PG (26.0-33.0); MEAN CORPUSCULAR HGB CONC 31 g/dl (31.0-36.0); MEAN CORPUSCULAR VOLUME 95 fL (82-100); MONOCYTES # (AUTO) 0.5 K/uL (0.1-1.30); MONOCYTES % (AUTO) 8.6 % (2.0-12.0); NEUTROPHILS # (AUTO) 4.5 K/uL (1.8-8.9); NEUTROPHILS % (AUTO) 79.1 % (43.0-81.0); PLATELET COUNT (AUTO) 97 K/uL (150-450); RED BLOOD CELL COUNT(AUTO) 3.15 MIL/uL (4.0-5.2); RED CELL DISTRIBUTION WIDTH 23.5 % (11.5-15.0); WHITE BLOOD COUNT (AUTO) 5.7 K/uL (4.3-11.0)
[2024-04-07 05:33] LABS: BILIRUBIN,DIRECT 0.5 mg/dL (0.0-0.2); BILIRUBIN,TOTAL 0.8 mg/dL (0.2-1.0); CALCIUM, SERUM 8.8 mg/dL (8.5-10.1); CREATININE 1.2 mg/dL (0.6-1.3); MAGNESIUM 1.4 mg/dL (1.8-2.4); PHOSPHORUS 4.5 mg/dL (2.5-4.9); POTASSIUM 4.5 mmol/L (3.5-5.1)
[2024-04-07 05:41] LABS: THYROID STIMULATING HORMONE 30.79 uIU/mL (0.358-3.74)
[2024-04-07 06:11] LABS: ANISOCYTOSIS 1+; BASOPHILS % (MANUAL) 0 % (0.0-2.0); EOSINOPHILS % (MANUAL) 2 % (0-4); LYMPHOCYTES % (MANUAL) 5 % (16-48); MONOCYTES % (MANUAL) 7 % (0-11.0); NEUTROPHILS % (MANUAL) 86 (42-76); PLATELET ESTIMATE DECREASED; STOMATOCYTES 2+
[2024-04-07] MEDS: SENNOSIDES 8.6 MG TABLET PO SCH (08:36)
[2024-04-07] MEDS: ZINC SULFATE 220 MG CAPSULE PO SCH (08:36)
[2024-04-07] MEDS: POTASSIUM CHLORIDE 10 MEQ TABLET.SA PO SCH (08:36)
[2024-04-07] MEDS: PANTOPRAZOLE 40 MG TABLET.DR PO SCH (08:36)
[2024-04-07] MEDS: PREGABALIN 25 MG CAPSULE PO SCH (08:36)
[2024-04-07] MEDS: FUROSEMIDE 20 MG/2 ML VIAL IV SCH (08:36)
[2024-04-07] MEDS: DOCUSATE SODIUM 100 MG CAPSULE PO SCH (08:36)
[2024-04-07] MEDS: LIDOCAINE 5% (PATCH) 1 EA PATCH TP SCH (09:14)
[2024-04-07] MEDS: HYDROCODONE/APAP 10/325MG TABLET PO PRN (09:14)
[2024-04-07] MEDS ORDERED: AMIODARONE HCL 200 MG TABLET PO SCH (09:30)
[2024-04-07] MEDS: BUMETANIDE INJ 8 MG in IV NS 0.9% 48 ML IV ONE (09:57)
[2024-04-07] MEDS: IV NS 0.9% 250 ML IV PRN (09:57)
[2024-04-07] MEDS: MAGNESIUM OXIDE 400 MG TABLET PO ONE (10:16)
[2024-04-07] MEDS ORDERED: MINERAL OIL/PETROLATUM,WHITE 120 GM JAR TP PRN (10:30)
[2024-04-07] MEDS: CHLORHEXIDINE GLUCONATE 4% 118 ML BOTTLE TP SCH (12:58)
[2024-04-07] MEDS: MAG HYDROX/AL HYDROX/SIMETH 30 ML UDC PO PRN (12:59)
[2024-04-07] MEDS: ZOLPIDEM TARTRATE 5 MG TABLET PO PRN (20:16)
[2024-04-07] MEDS: LORAZEPAM 1 MG TABLET PO PRN (21:16)
[2024-04-07 23:41] LABS: APPEARANCE,URINE CLEAR (CLEAR); BILIRUBIN,URINE NEGATIVE (NEGATIVE); BLOOD, URINE NEGATIVE Ery/uL (NEGATIVE); COLOR,URINE YELLOW (YELLOW); KETONES,URINE NEGATIVE (NEGATIVE); LEUKOCYTE ESTERASE ,URINE NEGATIVE (NEGATIVE); NITRITE, URINE NEGATIVE (NEGATIVE); PH,URINE 5.5 (5.0-8.0); PROTEIN,URINE NEGATIVE (NEGATIVE); UGLUCOSE NEGATIVE (NEGATIVE); UROBILINOGEN,URINE 0.2 EU/dL (0.2)
[2024-04-08] VITALS (39 sets, daily range): BP systolic 100–155; BP diastolic 58–122; TEMP 97–98.2; O2SAT 86–97
[2024-04-08 01:38] LABS: EOSINOPHIL,URINE None Seen
[2024-04-08 05:09] LABS: BASOPHILS % (AUTO) 0.4 % (0.0-2.0); EOSINOPHILS # (AUTO) 0.1 K/uL (0.0-0.7); EOSINOPHILS % (AUTO) 1.8 % (0.0-6.0); HEMATOCRIT 30 % (33-45); HEMOGLOBIN 9.3 g/dL (11.5-14.8); LYMPHOCYTES # (AUTO) 0.4 K/uL (0.8-4.8); LYMPHOCYTES % (AUTO) 6.8 % (20.0-44.0); MEAN CORPUSCULAR HEMOGLOBIN 29 PG (26.0-33.0); MEAN CORPUSCULAR HGB CONC 31 g/dl (31.0-36.0); MEAN CORPUSCULAR VOLUME 93 fL (82-100); MONOCYTES # (AUTO) 0.4 K/uL (0.1-1.30); MONOCYTES % (AUTO) 6.8 % (2.0-12.0); NEUTROPHILS # (AUTO) 5.6 K/uL (1.8-8.9); NEUTROPHILS % (AUTO) 84.2 % (43.0-81.0); PLATELET COUNT (AUTO) 100 K/uL (150-450); RED BLOOD CELL COUNT(AUTO) 3.24 MIL/uL (4.0-5.2); WHITE BLOOD COUNT (AUTO) 6.6 K/uL (4.3-11.0)
[2024-04-08 05:19] LABS: CALCIUM, SERUM 8.7 mg/dL (8.5-10.1); CREATININE 1.1 mg/dL (0.6-1.3); MAGNESIUM 1.4 mg/dL (1.8-2.4); PHOSPHORUS 4.2 mg/dL (2.5-4.9); POTASSIUM 3.7 mmol/L (3.5-5.1); TOTAL PROTEIN, SERUM 6.8 g/dL (6.4-8.2)
[2024-04-08] MEDS: AMIODARONE HCL 200 MG TABLET PO SCH (08:20)
[2024-04-08] MEDS: ONDANSETRON HCL/PF 4 MG/2 ML VIAL IVP PRN (15:43)
[2024-04-09] VITALS (40 sets, daily range): BP systolic 100–155; BP diastolic 64–123; TEMP 97.8–98.4; O2SAT 89–100
[2024-04-09 05:09] LABS: BASOPHILS % (AUTO) 0.4 % (0.0-2.0); EOSINOPHILS # (AUTO) 0.2 K/uL (0.0-0.7); EOSINOPHILS % (AUTO) 3.3 % (0.0-6.0); HEMATOCRIT 30 % (33-45); HEMOGLOBIN 9.5 g/dL (11.5-14.8); LYMPHOCYTES # (AUTO) 0.5 K/uL (0.8-4.8); LYMPHOCYTES % (AUTO) 8.3 % (20.0-44.0); MEAN CORPUSCULAR HEMOGLOBIN 30 PG (26.0-33.0); MEAN CORPUSCULAR HGB CONC 31 g/dl (31.0-36.0); MEAN CORPUSCULAR VOLUME 96 fL (82-100); MONOCYTES # (AUTO) 0.6 K/uL (0.1-1.30); MONOCYTES % (AUTO) 10.1 % (2.0-12.0); NEUTROPHILS # (AUTO) 4.6 K/uL (1.8-8.9); NEUTROPHILS % (AUTO) 77.9 % (43.0-81.0); PLATELET COUNT (AUTO) 135 K/uL (150-450); RED BLOOD CELL COUNT(AUTO) 3.16 MIL/uL (4.0-5.2); RED CELL DISTRIBUTION WIDTH 24.4 % (11.5-15.0); WHITE BLOOD COUNT (AUTO) 5.9 K/uL (4.3-11.0)
[2024-04-09 05:21] LABS: CALCIUM, SERUM 8.7 mg/dL (8.5-10.1); CREATININE 0.9 mg/dL (0.6-1.3); POTASSIUM 4.6 mmol/L (3.5-5.1)
[2024-04-09] MEDS: BUMETANIDE INJ 8 MG in IV NS 0.9% 48 ML IV ONE (09:37)
[2024-04-09] MEDS: MAGNESIUM HYDROXIDE 30 ML UDC PO PRN (13:28)
[2024-04-09] MEDS ORDERED: MORPHINE SULFATE INJ 2 MG/ML DISP.SYRIN IV PRN (17:00)
[2024-04-09] MEDS: LEVOTHYROXINE SODIUM 25 MCG TABLET PO SCH (17:02)
[2024-04-10] VITALS (32 sets, daily range): BP systolic 107–148; BP diastolic 62–113; TEMP 97.2–98.3; O2SAT 79–97
[2024-04-10] MEDS: NA PHOS,M-B/NA PHOS,DI-BA 1 EA ENEMA RC PRN (01:23)
[2024-04-10 04:28] LABS: BASOPHILS % (AUTO) 0.3 % (0.0-2.0); EOSINOPHILS # (AUTO) 0.1 K/uL (0.0-0.7); HEMATOCRIT 29 % (33-45); HEMOGLOBIN 9.1 g/dL (11.5-14.8); LYMPHOCYTES # (AUTO) 0.3 K/uL (0.8-4.8); LYMPHOCYTES % (AUTO) 5.5 % (20.0-44.0); MEAN CORPUSCULAR HEMOGLOBIN 29 PG (26.0-33.0); MEAN CORPUSCULAR HGB CONC 31 g/dl (31.0-36.0); MEAN CORPUSCULAR VOLUME 94 fL (82-100); MONOCYTES # (AUTO) 0.4 K/uL (0.1-1.30); MONOCYTES % (AUTO) 7.4 % (2.0-12.0); NEUTROPHILS # (AUTO) 4.8 K/uL (1.8-8.9); NEUTROPHILS % (AUTO) 85.8 % (43.0-81.0); PLATELET COUNT (AUTO) 101 K/uL (150-450); RED CELL DISTRIBUTION WIDTH 23.7 % (11.5-15.0); WHITE BLOOD COUNT (AUTO) 5.6 K/uL (4.3-11.0)
[2024-04-10 04:47] LABS: ALBUMIN 2.2 g/dL (3.4-5.0); BILIRUBIN,TOTAL 1.2 mg/dL (0.2-1.0); CALCIUM, SERUM 8.7 mg/dL (8.5-10.1); CREATININE 1.1 mg/dL (0.6-1.3); MAGNESIUM 1.4 mg/dL (1.8-2.4); POTASSIUM 3.1 mmol/L (3.5-5.1); TOTAL PROTEIN, SERUM 7.1 g/dL (6.4-8.2)
[2024-04-10] MEDS: Magnesium 1GM/D5W 100ML PREMIX 100 ML IV SCH (09:12)
[2024-04-10] MEDS: POTASSIUM CL. PREMIX PERIPHER. 50 ML IV SCH (09:13)
[2024-04-10] MEDS: POTASSIUM CHLORIDE 20 MEQ TAB.PRT.SR PO SCH (10:01)
[2024-04-10 10:44] LABS: ABG BASE EXCESS 19.4 mmol/L (-2.0-2.0); ABG OXYGEN SATURATION 90.2 % (92.0-98.5); ABG PCO2 83.8 mmHg (35.0-45.0); ABG PH 7.377 (7.350-7.450); ABG PO2 63.8 mmHg (75.0-100.0); ABG TOTAL HEMOGLOBIN 10.6 G/dL (12.0-16.0); AaDO2 161.7 mmHg; COHb 1.1 % (0.5-1.5); MetHb 0.3 % (0.0-1.5); O2Hb 88.9 % (94.0-97.0); SITE, ABG Right Radial
[2024-04-11] VITALS (34 sets, daily range): BP systolic 114–152; BP diastolic 64–99; TEMP 97.4–98; O2SAT 77–96
[2024-04-11 04:51] LABS: BASOPHILS % (AUTO) 0.5 % (0.0-2.0); EOSINOPHILS # (AUTO) 0.2 K/uL (0.0-0.7); HEMATOCRIT 29 % (33-45); HEMOGLOBIN 9.1 g/dL (11.5-14.8); LYMPHOCYTES # (AUTO) 0.5 K/uL (0.8-4.8); LYMPHOCYTES % (AUTO) 10.2 % (20.0-44.0); MEAN CORPUSCULAR HEMOGLOBIN 30 PG (26.0-33.0); MEAN CORPUSCULAR HGB CONC 32 g/dl (31.0-36.0); MEAN CORPUSCULAR VOLUME 95 fL (82-100); MONOCYTES # (AUTO) 0.5 K/uL (0.1-1.30); MONOCYTES % (AUTO) 9.8 % (2.0-12.0); NEUTROPHILS # (AUTO) 4.1 K/uL (1.8-8.9); NEUTROPHILS % (AUTO) 76.5 % (43.0-81.0); PLATELET COUNT (AUTO) 97 K/uL (150-450); RED BLOOD CELL COUNT(AUTO) 3.03 MIL/uL (4.0-5.2); RED CELL DISTRIBUTION WIDTH 24.5 % (11.5-15.0); WHITE BLOOD COUNT (AUTO) 5.4 K/uL (4.3-11.0)
[2024-04-11 05:11] LABS: CALCIUM, SERUM 8.4 mg/dL (8.5-10.1); MAGNESIUM 1.6 mg/dL (1.8-2.4); PHOSPHORUS 3.3 mg/dL (2.5-4.9); POTASSIUM 4.2 mmol/L (3.5-5.1)
[2024-04-11 05:54] LABS: ANISOCYTOSIS 1+; BASOPHILS % (MANUAL) 0 % (0.0-2.0); EOSINOPHILS % (MANUAL) 1 % (0-4); LYMPHOCYTES % (MANUAL) 6 % (16-48); MONOCYTES % (MANUAL) 7 % (0-11.0); NEUTROPHILS % (MANUAL) 86 (42-76); PLATELET ESTIMATE DECREASED; STOMATOCYTES 1+
[2024-04-11] MEDS: MAGNESIUM OXIDE 400 MG TABLET PO ONE (10:09)
[2024-04-11] MEDS: TEMAZEPAM 7.5 MG CAPSULE PO PRN (21:00)
[2024-04-12] VITALS (20 sets, daily range): BP systolic 98–146; BP diastolic 62–88; TEMP 97.6–98.6; O2SAT 82–98
[2024-04-12 05:13] LABS: BASOPHILS % (AUTO) 0.7 % (0.0-2.0); EOSINOPHILS # (AUTO) 0.2 K/uL (0.0-0.7); HEMATOCRIT 31 % (33-45); HEMOGLOBIN 9.5 g/dL (11.5-14.8); LYMPHOCYTES # (AUTO) 0.5 K/uL (0.8-4.8); LYMPHOCYTES % (AUTO) 9.9 % (20.0-44.0); MEAN CORPUSCULAR HEMOGLOBIN 30 PG (26.0-33.0); MEAN CORPUSCULAR HGB CONC 31 g/dl (31.0-36.0); MEAN CORPUSCULAR VOLUME 96 fL (82-100); MONOCYTES # (AUTO) 0.4 K/uL (0.1-1.30); MONOCYTES % (AUTO) 8.5 % (2.0-12.0); NEUTROPHILS # (AUTO) 4.1 K/uL (1.8-8.9); NEUTROPHILS % (AUTO) 77.9 % (43.0-81.0); PLATELET COUNT (AUTO) 105 K/uL (150-450); RED BLOOD CELL COUNT(AUTO) 3.24 MIL/uL (4.0-5.2); RED CELL DISTRIBUTION WIDTH 24.7 % (11.5-15.0); WHITE BLOOD COUNT (AUTO) 5.2 K/uL (4.3-11.0)
[2024-04-12 05:26] LABS: CALCIUM, SERUM 8.7 mg/dL (8.5-10.1); CREATININE 0.9 mg/dL (0.6-1.3); MAGNESIUM 1.7 mg/dL (1.8-2.4); PHOSPHORUS 2.9 mg/dL (2.5-4.9); POTASSIUM 4.4 mmol/L (3.5-5.1)
[2024-04-12] MEDS: MAGNESIUM OXIDE 400 MG TABLET PO ONE (09:49)
[2024-04-12] MEDS: TEMAZEPAM 7.5 MG CAPSULE PO PRN (21:26)
[2024-04-13] VITALS (12 sets, daily range): BP systolic 118–141; BP diastolic 74–87; TEMP 98.1–98.4; O2SAT 88–100
[2024-04-13 06:41] LABS: BASOPHILS % (AUTO) 0.7 % (0.0-2.0); EOSINOPHILS # (AUTO) 0.2 K/uL (0.0-0.7); EOSINOPHILS % (AUTO) 3.4 % (0.0-6.0); HEMATOCRIT 31 % (33-45); HEMOGLOBIN 9.5 g/dL (11.5-14.8); LYMPHOCYTES # (AUTO) 0.7 K/uL (0.8-4.8); MEAN CORPUSCULAR HEMOGLOBIN 30 PG (26.0-33.0); MEAN CORPUSCULAR HGB CONC 31 g/dl (31.0-36.0); MEAN CORPUSCULAR VOLUME 96 fL (82-100); MONOCYTES # (AUTO) 0.6 K/uL (0.1-1.30); MONOCYTES % (AUTO) 10.4 % (2.0-12.0); NEUTROPHILS % (AUTO) 73.5 % (43.0-81.0); PLATELET COUNT (AUTO) 114 K/uL (150-450); RED BLOOD CELL COUNT(AUTO) 3.18 MIL/uL (4.0-5.2); RED CELL DISTRIBUTION WIDTH 24.8 % (11.5-15.0); WHITE BLOOD COUNT (AUTO) 5.5 K/uL (4.3-11.0)
[2024-04-13 07:56] LABS: CALCIUM, SERUM 8.3 mg/dL (8.5-10.1); CREATININE 0.8 mg/dL (0.6-1.3); MAGNESIUM 1.8 mg/dL (1.8-2.4); PHOSPHORUS 3.4 mg/dL (2.5-4.9); POTASSIUM 4.9 mmol/L (3.5-5.1)
[2024-04-13] MEDS: FUROSEMIDE 100 MG/10 ML VIAL IV SCH (11:27)
[2024-04-14] VITALS (14 sets, daily range): BP systolic 101–138; BP diastolic 76–88; TEMP 97.3–98.3; O2SAT 86–95
[2024-04-14 08:31] LABS: BASOPHILS % (AUTO) 0.8 % (0.0-2.0); EOSINOPHILS # (AUTO) 0.2 K/uL (0.0-0.7); EOSINOPHILS % (AUTO) 3.4 % (0.0-6.0); HEMATOCRIT 31 % (33-45); HEMOGLOBIN 9.9 g/dL (11.5-14.8); LYMPHOCYTES # (AUTO) 0.7 K/uL (0.8-4.8); MEAN CORPUSCULAR HEMOGLOBIN 30 PG (26.0-33.0); MEAN CORPUSCULAR HGB CONC 32 g/dl (31.0-36.0); MEAN CORPUSCULAR VOLUME 96 fL (82-100); MONOCYTES # (AUTO) 0.6 K/uL (0.1-1.30); MONOCYTES % (AUTO) 10.4 % (2.0-12.0); NEUTROPHILS % (AUTO) 73.4 % (43.0-81.0); PLATELET COUNT (AUTO) 119 K/uL (150-450); RED BLOOD CELL COUNT(AUTO) 3.26 MIL/uL (4.0-5.2); RED CELL DISTRIBUTION WIDTH 25.1 % (11.5-15.0); WHITE BLOOD COUNT (AUTO) 5.4 K/uL (4.3-11.0)
[2024-04-14 09:34] LABS: ALBUMIN 2.3 g/dL (3.4-5.0); BILIRUBIN,TOTAL 0.8 mg/dL (0.2-1.0); CALCIUM, SERUM 8.9 mg/dL (8.5-10.1); CREATININE 0.9 mg/dL (0.6-1.3); PHOSPHORUS 4.3 mg/dL (2.5-4.9); POTASSIUM 5.2 mmol/L (3.5-5.1); TOTAL PROTEIN, SERUM 7.6 g/dL (6.4-8.2)
[2024-04-14] MEDS: BENZONATATE 100 MG CAPSULE PO PRN (10:38)
[2024-04-15] VITALS (11 sets, daily range): BP systolic 113–135; BP diastolic 61–86; TEMP 97.1–98.1; O2SAT 82–98
[2024-04-15] MEDS: METOLAZONE 2.5 MG TABLET PO SCH (08:33)
[2024-04-15] MEDS: BUMETANIDE INJ 8 MG in IV NS 0.9% 48 ML IV ONE (08:41)
[2024-04-16] VITALS (11 sets, daily range): BP systolic 121–146; BP diastolic 58–89; TEMP 97.7–98.5; O2SAT 88–96
[2024-04-16 08:07] LABS: BASOPHILS % (AUTO) 0.5 % (0.0-2.0); EOSINOPHILS # (AUTO) 0.2 K/uL (0.0-0.7); EOSINOPHILS % (AUTO) 3.2 % (0.0-6.0); HEMATOCRIT 30 % (33-45); HEMOGLOBIN 9.3 g/dL (11.5-14.8); LYMPHOCYTES # (AUTO) 0.6 K/uL (0.8-4.8); LYMPHOCYTES % (AUTO) 9.6 % (20.0-44.0); MEAN CORPUSCULAR HEMOGLOBIN 30 PG (26.0-33.0); MEAN CORPUSCULAR HGB CONC 31 g/dl (31.0-36.0); MEAN CORPUSCULAR VOLUME 98 fL (82-100); MONOCYTES # (AUTO) 0.5 K/uL (0.1-1.30); MONOCYTES % (AUTO) 8.4 % (2.0-12.0); NEUTROPHILS # (AUTO) 4.7 K/uL (1.8-8.9); NEUTROPHILS % (AUTO) 78.3 % (43.0-81.0); PLATELET COUNT (AUTO) 100 K/uL (150-450); RED BLOOD CELL COUNT(AUTO) 3.09 MIL/uL (4.0-5.2); RED CELL DISTRIBUTION WIDTH 24.1 % (11.5-15.0)
[2024-04-16 09:18] LABS: ALBUMIN 2.1 g/dL (3.4-5.0); BILIRUBIN,TOTAL 0.8 mg/dL (0.2-1.0); CALCIUM, SERUM 8.8 mg/dL (8.5-10.1); CREATININE 1.1 mg/dL (0.6-1.3); MAGNESIUM 1.8 mg/dL (1.8-2.4); POTASSIUM 4.5 mmol/L (3.5-5.1); TOTAL PROTEIN, SERUM 7.5 g/dL (6.4-8.2)
[2024-04-16] MEDS: METOLAZONE 2.5 MG TABLET PO ONE (10:46)
[2024-04-16] MEDS: BUMETANIDE INJ 0.25 MG/ML VIAL IV SCH (10:46)
[2024-04-17] VITALS (12 sets, daily range): BP systolic 121–128; BP diastolic 68–81; TEMP 97–98.2; O2SAT 89–98
[2024-04-17] MEDS: ALBUTEROL FS 2.5 MG/3 ML VIAL.NEB IH PRN (04:47)
[2024-04-17 06:39] LABS: BASOPHILS % (AUTO) 0.4 % (0.0-2.0); EOSINOPHILS # (AUTO) 0.1 K/uL (0.0-0.7); EOSINOPHILS % (AUTO) 2.4 % (0.0-6.0); HEMATOCRIT 29 % (33-45); LYMPHOCYTES # (AUTO) 0.4 K/uL (0.8-4.8); LYMPHOCYTES % (AUTO) 7.8 % (20.0-44.0); MEAN CORPUSCULAR HEMOGLOBIN 30 PG (26.0-33.0); MEAN CORPUSCULAR HGB CONC 31 g/dl (31.0-36.0); MEAN CORPUSCULAR VOLUME 98 fL (82-100); MONOCYTES # (AUTO) 0.5 K/uL (0.1-1.30); MONOCYTES % (AUTO) 8.9 % (2.0-12.0); NEUTROPHILS # (AUTO) 4.5 K/uL (1.8-8.9); NEUTROPHILS % (AUTO) 80.5 % (43.0-81.0); PLATELET COUNT (AUTO) 124 K/uL (150-450); RED BLOOD CELL COUNT(AUTO) 3.02 MIL/uL (4.0-5.2); WHITE BLOOD COUNT (AUTO) 5.5 K/uL (4.3-11.0)
[2024-04-17 07:11] LABS: CALCIUM, SERUM 8.5 mg/dL (8.5-10.1); MAGNESIUM 1.6 mg/dL (1.8-2.4); PHOSPHORUS 4.7 mg/dL (2.5-4.9)
[2024-04-18] VITALS (9 sets, daily range): BP systolic 115–122; BP diastolic 65–72; TEMP 97–97.9; O2SAT 90–99
[2024-04-18 06:41] LABS: BASOPHILS % (AUTO) 0.3 % (0.0-2.0); EOSINOPHILS # (AUTO) 0.1 K/uL (0.0-0.7); EOSINOPHILS % (AUTO) 1.3 % (0.0-6.0); HEMATOCRIT 30 % (33-45); HEMOGLOBIN 9.3 g/dL (11.5-14.8); LYMPHOCYTES # (AUTO) 0.3 K/uL (0.8-4.8); LYMPHOCYTES % (AUTO) 6.6 % (20.0-44.0); MEAN CORPUSCULAR HEMOGLOBIN 30 PG (26.0-33.0); MEAN CORPUSCULAR HGB CONC 31 g/dl (31.0-36.0); MEAN CORPUSCULAR VOLUME 97 fL (82-100); MONOCYTES # (AUTO) 0.4 K/uL (0.1-1.30); MONOCYTES % (AUTO) 7.8 % (2.0-12.0); NEUTROPHILS # (AUTO) 4.2 K/uL (1.8-8.9); PLATELET COUNT (AUTO) 129 K/uL (150-450); RED BLOOD CELL COUNT(AUTO) 3.14 MIL/uL (4.0-5.2); RED CELL DISTRIBUTION WIDTH 24.1 % (11.5-15.0)
[2024-04-18 07:10] LABS: CALCIUM, SERUM 9.1 mg/dL (8.5-10.1); CREATININE 0.7 mg/dL (0.6-1.3); PHOSPHORUS 3.6 mg/dL (2.5-4.9); POTASSIUM 3.4 mmol/L (3.5-5.1)
[2024-04-18] MEDS ORDERED: POTASSIUM CHLORIDE 20 MEQ POWDER PACKET NG SCH (10:00)
[2024-04-18] MEDS: POTASSIUM CHLORIDE 20 MEQ POWDER PACKET PO SCH (10:30)
[2024-04-18 17:13] LABS: APPEARANCE,SPUN,BODY FLUID CLEAR (CLEAR)
[2024-04-18 17:30] LABS: PROTEIN, BODY FLUID 1.8 G/DL
[2024-04-18 17:47] LABS: WBC, BODY FLUID 118 /cu. mm. (0-200)
[2024-04-18 19:01] LABS: POLYNUCLEAR, BODY FLUID 43 % (0-25)
[2024-04-18 19:02] LABS: MONOCYTES,BODY FLUID 19 %
[2024-04-18 19:03] LABS: TOTAL VOLUME,BODY FLUID 0 mL
[2024-04-19] VITALS (74 sets, daily range): BP systolic 82–137; BP diastolic 36–99; TEMP 97.5–99.5; O2SAT 75–100
[2024-04-19 04:53] LABS: ABG BASE EXCESS 27.1 mmol/L (-2.0-2.0); ABG OXYGEN SATURATION 68.5 % (92.0-98.5); ABG PCO2 140.4 mmHg (35.0-45.0); ABG PH 7.256 (7.350-7.450); ABG PO2 44.1 mmHg (75.0-100.0); ABG TOTAL HEMOGLOBIN 12.1 G/dL (12.0-16.0); AaDO2 528.5 mmHg; COHb 0.5 % (0.5-1.5); MetHb 0.1 % (0.0-1.5); O2Hb 68.1 % (94.0-97.0); SITE, ABG Left Radial
[2024-04-19 05:32] LABS: CALCIUM, SERUM 8.9 mg/dL (8.5-10.1); CREATININE 0.9 mg/dL (0.6-1.3); POTASSIUM 4.1 mmol/L (3.5-5.1)
[2024-04-19] MEDS: PROPOFOL 100 ML IV PRN (05:35)
[2024-04-19] MEDS: NOREPINEPHRINE 32 MG in IV NS 0.9% 218 ML IV PRN (07:13)
[2024-04-19] MEDS ORDERED: SUCCINYLCHOLINE CHLORIDE 20 MG/ML VIAL IV ONE (08:48)
[2024-04-19] MEDS: BUMETANIDE INJ 6 MG in IV D5W 36 ML IV ONE (11:17)
[2024-04-20] VITALS (107 sets, daily range): BP systolic 62–150; BP diastolic 31–115; TEMP 98–98.9; O2SAT 83–100
[2024-04-20 06:54] LABS: BASOPHILS % (AUTO) 0.8 % (0.0-2.0); EOSINOPHILS # (AUTO) 0.1 K/uL (0.0-0.7); EOSINOPHILS % (AUTO) 1.4 % (0.0-6.0); HEMATOCRIT 29 % (33-45); HEMOGLOBIN 9.2 g/dL (11.5-14.8); LYMPHOCYTES # (AUTO) 0.4 K/uL (0.8-4.8); LYMPHOCYTES % (AUTO) 7.7 % (20.0-44.0); MEAN CORPUSCULAR HEMOGLOBIN 30 PG (26.0-33.0); MEAN CORPUSCULAR HGB CONC 32 g/dl (31.0-36.0); MEAN CORPUSCULAR VOLUME 94 fL (82-100); MONOCYTES # (AUTO) 0.2 K/uL (0.1-1.30); MONOCYTES % (AUTO) 4.4 % (2.0-12.0); NEUTROPHILS # (AUTO) 4.8 K/uL (1.8-8.9); NEUTROPHILS % (AUTO) 85.7 % (43.0-81.0); PLATELET COUNT (AUTO) 111 K/uL (150-450); RED BLOOD CELL COUNT(AUTO) 3.08 MIL/uL (4.0-5.2); RED CELL DISTRIBUTION WIDTH 23.6 % (11.5-15.0); WHITE BLOOD COUNT (AUTO) 5.6 K/uL (4.3-11.0)
[2024-04-20 07:14] LABS: ALANINE AMINOTRANSFERASE < 6 U/L (12-78); ALBUMIN 1.5 g/dL (3.4-5.0); ALKALINE PHOSPHATASE 100 U/L (46-116); ASPARTATE AMINOTRANSFERASE 27 U/L (15-37); BILIRUBIN,TOTAL 1.6 mg/dL (0.2-1.0); CALCIUM, SERUM 9.2 mg/dL (8.5-10.1); CHLORIDE 93 mmol/L (98-107); GLUCOSE 113 mg/dL (74-106); MAGNESIUM 1.6 mg/dL (1.8-2.4); PHOSPHORUS 2.9 mg/dL (2.5-4.9); SODIUM SERUM 144 mmol/L (136-145); TOTAL PROTEIN, SERUM 5.8 g/dL (6.4-8.2); UREA NITROGEN, BLOOD 27 mg/dL (7-18)
[2024-04-20 07:46] LABS: POTASSIUM 2.4 mmol/L (3.5-5.1)
[2024-04-20 07:47] LABS: CARBON DIOXIDE 53 mmol/L (21-32)
[2024-04-20] MEDS: POTASSIUM CL. PREMIX PERIPHER. 50 ML IV SCH (09:50)
[2024-04-20] MEDS: Magnesium 1GM/D5W 100ML PREMIX 100 ML IV SCH (09:51)
[2024-04-20] MEDS: PIPERACILLIN /TAZOBACTAM 3.375 G in IV D5W 50 ML IV SCH (10:00)
[2024-04-20 10:12] LABS: ABG BASE EXCESS 24.5 mmol/L (-2.0-2.0); ABG OXYGEN SATURATION 92.2 % (92.0-98.5); ABG PH 7.579 (7.350-7.450); ABG PO2 63.6 mmHg (75.0-100.0); ABG TOTAL HEMOGLOBIN 9.9 G/dL (12.0-16.0); AaDO2 377.5 mmHg; COHb 0.6 % (0.5-1.5); O2Hb 91.6 % (94.0-97.0); SITE, ABG Right Radial; VENT MODE, BG AC 16 475 70% +10
[2024-04-20] MEDS ORDERED: JEVITY 1.2 CAL 1,000 ML BOTTLE GT PRN (13:30)
[2024-04-20] MEDS ORDERED: MAGNESIUM HYDROXIDE 30 ML UDC GT PRN (13:32)
[2024-04-20] MEDS ORDERED: MAG HYDROX/AL HYDROX/SIMETH 30 ML UDC GT PRN (13:32)
[2024-04-20] MEDS ORDERED: HYDROCODONE/APAP 10/325MG TABLET GT PRN (13:48)
[2024-04-20] MEDS: DOCUSATE SODIUM LIQ 100 MG/10 ML UDC GT SCH (16:35)
[2024-04-20] MEDS: SENNOSIDES 8.6 MG TABLET GT SCH (16:35)
[2024-04-20] MEDS: JEVITY 1.2 CAL 1,000 ML BOTTLE GT PRN (16:48)
[2024-04-20 22:28] LABS: ABG BASE EXCESS 28.9 mmol/L (-2.0-2.0); ABG OXYGEN SATURATION 84.4 % (92.0-98.5); ABG PCO2 85.4 mmHg (35.0-45.0); ABG PO2 56.1 mmHg (75.0-100.0); ABG TOTAL HEMOGLOBIN 11.4 G/dL (12.0-16.0); AaDO2 571.5 mmHg; COHb 0.7 % (0.5-1.5); MetHb 0.3 % (0.0-1.5); O2Hb 83.6 % (94.0-97.0); PEEP,BG 10 cm H2O; SITE, ABG Right Radial
[2024-04-21] VITALS (87 sets, daily range): BP systolic 78–153; BP diastolic 40–74; TEMP 98.4–102.3; O2SAT 92–100
[2024-04-21] MEDS: ACETAMINOPHEN 650 MG/20.3 ML UDC GT PRN (04:09)
[2024-04-21 05:14] LABS: BASOPHILS % (AUTO) 0.1 % (0.0-2.0); EOSINOPHILS % (AUTO) 0.3 % (0.0-6.0); HEMATOCRIT 31 % (33-45); HEMOGLOBIN 9.9 g/dL (11.5-14.8); LYMPHOCYTES # (AUTO) 0.5 K/uL (0.8-4.8); LYMPHOCYTES % (AUTO) 6.9 % (20.0-44.0); MEAN CORPUSCULAR HEMOGLOBIN 30 PG (26.0-33.0); MEAN CORPUSCULAR HGB CONC 32 g/dl (31.0-36.0); MEAN CORPUSCULAR VOLUME 93 fL (82-100); MONOCYTES # (AUTO) 0.2 K/uL (0.1-1.30); NEUTROPHILS # (AUTO) 6.4 K/uL (1.8-8.9); NEUTROPHILS % (AUTO) 89.7 % (43.0-81.0); PLATELET COUNT (AUTO) 116 K/uL (150-450); RED BLOOD CELL COUNT(AUTO) 3.31 MIL/uL (4.0-5.2); RED CELL DISTRIBUTION WIDTH 23.7 % (11.5-15.0); WHITE BLOOD COUNT (AUTO) 7.1 K/uL (4.3-11.0)
[2024-04-21 05:33] LABS: ALANINE AMINOTRANSFERASE < 6 U/L (12-78); ALBUMIN 1.5 g/dL (3.4-5.0); ALKALINE PHOSPHATASE 103 U/L (46-116); ASPARTATE AMINOTRANSFERASE 22 U/L (15-37); BILIRUBIN,TOTAL 2.5 mg/dL (0.2-1.0); CALCIUM, SERUM 9.4 mg/dL (8.5-10.1); CHLORIDE 91 mmol/L (98-107); CREATININE 1.3 mg/dL (0.6-1.3); GLUCOSE 104 mg/dL (74-106); MAGNESIUM 1.7 mg/dL (1.8-2.4); PHOSPHORUS 2.6 mg/dL (2.5-4.9); SODIUM SERUM 145 mmol/L (136-145); TOTAL PROTEIN, SERUM 6.2 g/dL (6.4-8.2); UREA NITROGEN, BLOOD 29 mg/dL (7-18)
[2024-04-21 05:36] LABS: POTASSIUM 2.2 mmol/L (3.5-5.1)
[2024-04-21 05:37] LABS: CARBON DIOXIDE 52 mmol/L (21-32)
[2024-04-21] MEDS: POTASSIUM CL. PREMIX PERIPHER. 50 ML IV SCH ×2 (06:00→16:48)
[2024-04-21] MEDS: METOLAZONE 2.5 MG TABLET GT SCH (08:22)
[2024-04-21] MEDS: ZINC SULFATE 220 MG CAPSULE GT SCH (08:23)
[2024-04-21] MEDS: PANTOPRAZOLE 40 MG/PACK PACK GT SCH (08:23)
[2024-04-21] MEDS: AMIODARONE HCL 200 MG TABLET GT SCH (08:23)
[2024-04-21] MEDS: LEVOTHYROXINE SODIUM 25 MCG TABLET GT SCH (08:25)
[2024-04-21] MEDS: PROSOURCE / PROSTAT (PYXIS) 30 ML UDC GT SCH (08:28)
[2024-04-21] MEDS: MAGNESIUM OXIDE 400 MG TABLET NG ONE (09:16)
[2024-04-21] MEDS: VITAL AF 1.2 1,000 ML BOTTLE GT PRN (09:19)
[2024-04-21 15:34] LABS: CALCIUM, SERUM 9.1 mg/dL (8.5-10.1); CREATININE 1.2 mg/dL (0.6-1.3)
[2024-04-21 15:59] LABS: POTASSIUM 2.2 mmol/L (3.5-5.1)
[2024-04-22] VITALS (54 sets, daily range): BP systolic 93–126; BP diastolic 48–75; TEMP 98–98.5; O2SAT 80–100
[2024-04-22 04:52] LABS: BASOPHILS # (AUTO) 0.1 K/uL (0.0-0.2); BASOPHILS % (AUTO) 0.8 % (0.0-2.0); EOSINOPHILS # (AUTO) 0.3 K/uL (0.0-0.7); EOSINOPHILS % (AUTO) 3.5 % (0.0-6.0); HEMATOCRIT 30 % (33-45); HEMOGLOBIN 9.2 g/dL (11.5-14.8); LYMPHOCYTES # (AUTO) 0.5 K/uL (0.8-4.8); LYMPHOCYTES % (AUTO) 5.4 % (20.0-44.0); MEAN CORPUSCULAR HEMOGLOBIN 30 PG (26.0-33.0); MEAN CORPUSCULAR HGB CONC 31 g/dl (31.0-36.0); MEAN CORPUSCULAR VOLUME 95 fL (82-100); MONOCYTES # (AUTO) 0.3 K/uL (0.1-1.30); MONOCYTES % (AUTO) 2.8 % (2.0-12.0); NEUTROPHILS # (AUTO) 8.7 K/uL (1.8-8.9); NEUTROPHILS % (AUTO) 87.5 % (43.0-81.0); PLATELET COUNT (AUTO) 99 K/uL (150-450); RED BLOOD CELL COUNT(AUTO) 3.11 MIL/uL (4.0-5.2); RED CELL DISTRIBUTION WIDTH 23.5 % (11.5-15.0); WHITE BLOOD COUNT (AUTO) 9.9 K/uL (4.3-11.0)
[2024-04-22 05:12] LABS: ALKALINE PHOSPHATASE 104 U/L (46-116); ASPARTATE AMINOTRANSFERASE 21 U/L (15-37); BILIRUBIN,TOTAL 2.6 mg/dL (0.2-1.0); CHLORIDE 98 mmol/L (98-107); GLUCOSE 136 mg/dL (74-106); MAGNESIUM 1.7 mg/dL (1.8-2.4); PHOSPHORUS 3.7 mg/dL (2.5-4.9); SODIUM SERUM 148 mmol/L (136-145); UREA NITROGEN, BLOOD 30 mg/dL (7-18)
[2024-04-22 05:16] LABS: ALBUMIN 1.3 g/dL (3.4-5.0); CARBON DIOXIDE 57 mmol/L (21-32); POTASSIUM 2.6 mmol/L (3.5-5.1)
[2024-04-22 05:57] LABS: ALANINE AMINOTRANSFERASE 6 U/L (12-78)
[2024-04-22] MEDS: POTASSIUM CL. PREMIX PERIPHER. 50 ML IV SCH (07:56)
[2024-04-22] MEDS: Magnesium 1GM/D5W 100ML PREMIX 100 ML IV SCH (11:12)
[2024-04-22] MEDS: POTASSIUM CHLORIDE 20 MEQ POWDER PACKET GT ONE (12:31)
[2024-04-22 14:50] LABS: CALCIUM, SERUM 9.2 mg/dL (8.5-10.1); CREATININE 0.9 mg/dL (0.6-1.3); POTASSIUM 3.8 mmol/L (3.5-5.1)
== END 2024-04-22 17:32 | disposition short-term general hospital (02) | DRG 194 ==
LOC: ER 18:56 → ICU 22:00 → TELE1 04-12 10:12 → TELE 04-12 10:17 → TELE-TD 04-12 11:02 → TELE1 04-13 08:58 → UNDODISIN 04-14 18:06 → TELE-TD 04-15 16:26 → ICU 04-18 21:45
PROVIDERS: ADMIT Nurse Practitioner Family
PROC: 5A09557 Assistance with Respiratory Ventilation, Greater than 96 Consecutive Hours, Continuous Positive Airway Pressure (ICD-10-PCS; principal; 2024-04-14)
PROC: 5A1945Z Respiratory Ventilation, 24-96 Consecutive Hours (ICD-10-PCS; 2024-04-19)
PROC: 0BH17EZ Insertion of Endotracheal Airway into Trachea, Via Natural or Artificial Opening (ICD-10-PCS; 2024-04-19)
PROC: 0W993ZX Drainage of Right Pleural Cavity, Percutaneous Approach, Diagnostic (ICD-10-PCS; 2024-04-19)
PROC: 02HV33Z Insertion of Infusion Device into Superior Vena Cava, Percutaneous Approach (ICD-10-PCS; 2024-04-20)
PROC: B548ZZA Ultrasonography of Superior Vena Cava, Guidance (ICD-10-PCS; 2024-04-20)
DX: I13.2 Hypertensive heart and chronic kidney disease with heart failure and with stage 5 chronic kidney disease, or end stage renal disease (principal); J96.21 Acute and chronic respiratory failure with hypoxia; E43 Unspecified severe protein-calorie malnutrition; E87.3 Alkalosis; J90 Pleural effusion, not elsewhere classified; I27.20 Pulmonary hypertension, unspecified; E66.2 Morbid (severe) obesity with alveolar hypoventilation; E88.09 Other disorders of plasma-protein metabolism, not elsewhere classified; L03.116 Cellulitis of left lower limb; I48.0 Paroxysmal atrial fibrillation; I48.91 Unspecified atrial fibrillation; N18.6 End stage renal disease; I50.33 Acute on chronic diastolic (congestive) heart failure; R73.9 Hyperglycemia, unspecified; J96.22 Acute and chronic respiratory failure with hypercapnia; Z79.51 Long term (current) use of inhaled steroids; Z79.899 Other long term (current) drug therapy; E03.9 Hypothyroidism, unspecified; M19.90 Unspecified osteoarthritis, unspecified site; D64.9 Anemia, unspecified; E83.42 Hypomagnesemia; I05.0 Rheumatic mitral stenosis; Z68.41 Body mass index [BMI] 40.0-44.9, adult; E87.6 Hypokalemia; I89.0 Lymphedema, not elsewhere classified; M89.8X9 Other specified disorders of bone, unspecified site; Z53.20 Procedure and treatment not carried out because of patient's decision for unspecified reasons; Z79.01 Long term (current) use of anticoagulants; Z91.199 Patient's noncompliance with other medical treatment and regimen due to unspecified reason; F41.9 Anxiety disorder, unspecified; F39 Unspecified mood [affective] disorder; J98.11 Atelectasis; S80.12XA Contusion of left lower leg, initial encounter; X58.XXXA Exposure to other specified factors, initial encounter; Y92.9 Unspecified place or not applicable; Z74.09 Other reduced mobility; Z86.19 Personal history of other infectious and parasitic diseases
CPT/HCPCS: 31720; 36415; 36600; 71045-TC; 71250-TC; 74018; 80048-TC; 80053-TC; 80076-TC; 82803-TC; 82962-TC; 83690-TC; 83735-TC; 83880; 84100-TC; 84439-TC; 84443-TC; 84484-TC; 85025-TC; 85730-TC; 87040-TC; 87081-TC; 87102-TC; 88108-TC; 88305-TC; 89051-TC; 93307-TC; 93971-TC; 94002-TC; 94003-TC; 94660; 94760-TC; 94762-TC; 94799-TC; 97110-TC; 97112-TC; 97530-TC; 97535-TC; 98960; 99082-TC; A4223; A6403; G0378; J0330; J1650; J1940; J2405; J2543; J3475; J3480; J3490; J7050; J7060